=== PATIENT | female | born 1945 | race Caucasian/White ===

== ENCOUNTER → 2016-11-13 | Outpatient (CLI) | payer MEDICARE, BC ==
--- NOTE | 2016-11-14 07:45 | MM ---
Reason for exam: screening (asymptomatic). Last mammogram was performed 1 year ago. History: Patient is postmenopausal and has history of high-risk lesion on a previous biopsy at age 66. Benign right breast needle localzation of both breasts, November 12, 2012. High risk US RT VAD breast biopsy of the right breast, November 02, 2012. Cyst aspiration of the left breast. Took estrogen for 5 years beginning at age 55. Physical Findings: A clinical breast exam by your physician is recommended on an annual basis and results should be correlated with mammographic findings. MG 3D Screening Mammo W/Cad Bilateral CC and MLO view(s) were taken. Prior study comparison: November 13, 2015, bilateral MG screening mammo w CAD. November 10, 2014, bilateral MG screening mammo w CAD. The breast tissue is almost entirely fat. No significant changes when compared with prior studies. ASSESSMENT: Benign, BI-RAD 2 RECOMMENDATION: Routine screening mammogram of both breasts in 1 year.
== END | disposition home or self-care (01) ==
LOC: RADMAMWWP 10:04
PROVIDERS: ATTEND Obstetrics & Gynecology
DX: Z12.31 Encounter for screening mammogram for malignant neoplasm of breast (principal)
CPT/HCPCS: 77063; G0202

== ENCOUNTER 2016-12-06 15:11 | Observation (INO) | payer MEDICARE, BC ==
[2016-12-06] MEDS ORDERED: ASPIRIN 81 MG CHEW PO STA (15:16)
[2016-12-06 15:35] LABS: Glucose,Whole Blood 137 mg/dL (75-99)
[2016-12-06 15:51] LABS: Basophils % (A) 0 %; CH 30.1; CHCM 34.4; Eosinophils # (A) 0.2 k/uL (0-0.7); Eosinophils % (A) 2 %; HCT 40.8 % (34.0-46.0); Luc # (Auto) 0.27; Luc % (Auto) 3; Lymphocytes # (A) 2.7 k/uL (1.0-4.8); Lymphocytes % (A) 31 %; MCH 30.2 pg (25.0-35.0); MCHC 34.3 g/dL (31.0-37.0); MCV 87.9 fL (80.0-100.0); Mean Platelet Volume 8.6; Monocytes # (A) 0.6 k/uL (0-1.0); Monocytes % (A) 7 %; Neutrophils % (A) 57 %; RBC 4.64 m/uL (3.80-5.40); RDW 13.4 % (11.5-15.5); WBC 8.8 k/uL (3.8-10.6); WBC (Perox) 8.91
[2016-12-06 16:01] LABS: ALT 25 U/L (9-52); AST 25 U/L (14-36); Alkaline Phosphatase 67 U/L (38-126); Anion Gap 13 mmol/L; Blood Urea Nitrogen 16 mg/dL (7-17); Calcium 9.6 mg/dL (8.4-10.2); Carbon Dioxide 24 mmol/L (22-30); Chloride 105 mmol/L (98-107); Glucose 127 mg/dL (74-99); Magnesium 1.8 mg/dL (1.6-2.3); Non-African American GFR(MDRD) >60 (>60 ml/min/1.73 sqM); Potassium 4.1 mmol/L (3.5-5.1); Sodium 142 mmol/L (137-145); Total Bilirubin 0.5 mg/dL (0.2-1.3); Total Protein 6.6 g/dL (6.3-8.2)
[2016-12-06 16:13] LABS: Partial Thromboplastin Time 22.9 sec (22.0-30.0)
--- NOTE | 2016-12-06 16:32 | XR ---
EXAMINATION TYPE: XR chest 2V DATE OF EXAM: 12/06/2016 3:56 PM HISTORY: Chest Pain. REFERENCE: NONE. FINDINGS: The lungs are clear. Pleural spaces are clear. Heart size is upper limits of normal. IMPRESSION: BORDERLINE CARDIOMEGALY.
[2016-12-06] MEDS ORDERED: NALOXONE 0.4 MG/ML 1 ML VIAL IV PRN (16:54)
[2016-12-06] MEDS ORDERED: MORPHINE SULFATE 4 MG/ML SYRINGE IV PRN (16:54)
[2016-12-06] MEDS ORDERED: ONDANSETRON 4 MG/2 ML VIAL IVP PRN (16:54)
--- NOTE | 2016-12-06 16:54 | ED ---
Chest Pain HPI - General Chief Complaint: Chest Pain Stated Complaint: CHEST PAIN Time Seen by Provider: 12/06/16 15:16 Source: patient Mode of arrival: wheelchair Limitations: no limitations - History of Present Illness Initial Comments: Patient complains of chest pain. Pain is in the middle of the chest. It is pressure-like. Patient complains of diaphoresis and nausea. She has not had a syncopal or presyncope episodes today. She has no belly pain. She has no focal weakness. She has no change in vision or hearing. She has no headache. She has no neck pain or stiffness. She took no medication for the pain prior to arrival. Nothing makes it better or worse. She has no swelling in the arms or legs. She was helping to take care of her mother when her symptoms began. However she was not doing anything exertional. - Related Data Home Medications Medication Instructions Recorded Confirmed Atenolol 100 mg PO DAILY 12/06/16 12/06/16 Citalopram Hydrobromide [CeleXA] 20 mg PO DAILY 12/06/16 12/06/16 clonazePAM [KlonoPIN] 1 mg PO BID 12/06/16 12/06/16 Allergies Allergy/AdvReac Type Severity Reaction Status Date / Time No Known Allergies Allergy Verified 12/06/16 15:36 Review of Systems ROS Statement: Those systems with pertinent positive or pertinent negative responses have been documented in the HPI. ROS Other: All systems not noted in ROS Statement are negative. EKG Findings - EKG Comments: EKG Findings:: Twelve-lead EKG is obtained, interpreted by me showing ventricular rate 55 bpm, normal IL interval and QRS, axis, no ST elevation or depression, interpreted by me as sinus bradycardia. Past Medical History Past Medical History: Hypertension History of Any Multi-Drug Resistant Organisms: None Reported Past Surgical History: Hysterectomy Past Psychological History: Anxiety, Depression Smoking Status: Never smoker Past Alcohol Use History: None Reported Past Drug Use History: None Reported General Exam Limitations: no limitations General appearance: alert, in no apparent distress Head exam: Present: atraumatic, normocephalic, normal inspection Eye exam: Present: normal appearance, PERRL, EOMI. Absent: scleral icterus, conjunctival injection, periorbital swelling ENT exam: Present: normal exam, mucous membranes moist Neck exam: Present: normal inspection. Absent: tenderness, meningismus, lymphadenopathy Respiratory exam: Present: normal lung sounds bilaterally. Absent: respiratory distress, wheezes, rales, rhonchi, stridor Cardiovascular Exam: Present: regular rate, normal rhythm, normal heart sounds. Absent: systolic murmur, diastolic murmur, rubs, gallop, clicks GI/Abdominal exam: Present: soft, normal bowel sounds. Absent: distended, tenderness, guarding, rebound, rigid Extremities exam: Present: normal inspection, full ROM, normal capillary refill. Absent: tenderness, pedal edema, joint swelling, calf tenderness Back exam: Present: normal inspection Neurological exam: Present: alert, oriented X3, CN II-XII intact Psychiatric exam: Present: normal affect, normal mood Skin exam: Present: warm, dry, intact, normal color. Absent: rash Course Vital Signs 12/06/16 12/06/16 15:12 15:42 Temperature 97.4 F L Pulse Rate 55 L 51 L Respiratory 24 24 Rate Blood Pressure 139/90 174/78 O2 Sat by Pulse 98 99 Oximetry Chest Pain MDM - [facility] Patient complains of chest pain. On reevaluation she is diaphoretic. I'm concerned this is acute coronary syndrome. Laboratory studies are initially normal. I do feel that she requires admission to the hospital. Disposition Clinical Impression: Chest pain Disposition: ADMITTED IP TO THIS HOSP Condition: Fair Time of Disposition: 16:54
[2016-12-06 20:54] VITALS: BMI 34.1
[2016-12-06] MEDS: FAMOTIDINE 20 MG TAB PO SCH (21:22)
[2016-12-06] MEDS ORDERED: CITALOPRAM HYDROBROMIDE 20 MG TAB PO SCH (21:26)
[2016-12-06] MEDS: CITALOPRAM HYDROBROMIDE 20 MG TAB PO SCH (22:26)
[2016-12-06] MEDS: clonazePAM 1 MG TAB PO SCH (22:26)
[2016-12-06] MEDS: MELATONIN 3 MG TABLET PO SCH (22:26)
[2016-12-06] MEDS: ACETAMINOPHEN TAB 500 MG TAB PO SCH (22:27)
[2016-12-06 23:45] VITALS: RESP 18
[2016-12-07] MEDS: FAMOTIDINE 20 MG TAB PO SCH ×2 (08:14→20:25)
[2016-12-07] MEDS: clonazePAM 1 MG TAB PO SCH ×2 (08:14→20:25)
[2016-12-07] MEDS ORDERED: CITALOPRAM HYDROBROMIDE 20 MG TAB PO SCH (09:00)
[2016-12-07] MEDS ORDERED: ATENOLOL 50 MG TAB PO SCH (09:00)
--- NOTE | 2016-12-07 09:15 | CONS ---
DATE OF CONSULTATION: Mrs. Brian is a 70-year-old female with a history of hypertension, who presented with symptoms of progressive fatigue and some chest discomfort. She has been feeling quite fatigued and tired over the last 3 or 4 months. She has been taking care of her mom and yesterday she felt quite tired, sweaty and dizzy. She came into the emergency room and subsequently admitted. Patient has occasional episode of chest discomfort, but not any worse. Yesterday did not try to do any physical activity. She is average in exercise tolerance, She has no exertional chest pain or change in her breathing. She denies any palpitation. No syncope. No PND, orthopnea, no peripheral edema. She has no prior documented history of coronary artery disease. Her coronary risk factors are remarkable for hypertension. She is nondiabetic, nonsmoker. Her lipid profile is not available. Her medications at home include Klonopin, Celexa and atenolol 100 mg daily and Tylenol. ALLERGIES: None. SOCIAL HISTORY: No history of alcohol or tobacco use. REVIEW OF SYSTEMS: RESPIRATORY SYSTEM: She has no recent wheezing. No cough. No history of documented obstructive lung disease. GI SYSTEM: No recent GI bleeding. No peptic ulcer cause disease. SYSTEM: No dysuria or hematuria. NERVOUS SYSTEM: No stroke or seizure. PHYSICAL EXAMINATION: A 70-year-old female, alert, oriented, in no apparent distress. Blood pressure 119/59 with a heart in the 50s. HEAD: Normocephalic. EYES: Sclerae anicteric. NECK: Good upstroke. No bruit. No jugular venous distention. LUNGS: Clear to auscultation. HEART: Regular rate and rhythm. S1, S2, no S3, no rub or gallop. ABDOMEN: Soft, nontender, positive bowel sounds. No organomegaly. EXTREMITIES: No edema. Intact distal pulses. LAB DATA: EKG sinus mechanism, rate 55, normal axis and intervals, normal echocardiogram. Troponin less than 0.012 for 3 samples. Blood sugar of 127, BUN and creatinine 16 and 0.9. Hemoglobin of 14. Chest x-ray shows no acute infiltrate. IMPRESSION: 1. Symptoms of chest discomfort, atypical for ischemic heart disease. 2. Symptoms of fatigue with no clear cardiac etiology. 3. Hypertension. 4. History of anxiety. RECOMMENDATIONS: I would recommend to obtain an evaluation of thyroid function tests. I will also obtain an echocardiogram with Doppler and a stress echocardiogram. If there is no evidence of abnormality, then no further cardiac work-up will be needed. I will check her hemoglobin A1c because of the mild elevation of her blood sugar. Depending on the results of her testing further recommendation will be made. Thank you for this consult. We will follow with you.
[2016-12-07] MEDS: ACETAMINOPHEN TAB 500 MG TAB PO SCH ×2 (10:03→20:26)
--- NOTE | 2016-12-07 19:07 | HP ---
DATE OF ADMISSION: REASON FOR ADMISSION: Chest pressure. HISTORY OF PRESENT ILLNESS: This is a 70-year-old female with no past history of cardiac disease, comes into the hospital with an episode where patient was noted diaphoresis and chest pressure that lasted less than 30 minutes. Patient states that she has been having intermittent chest pain for the last few months. Patient states that she is under extreme stress trying to take care of her 90-year-old mother by herself. Patient states that she is physically active, is able to walk close to a mile without any reproduction of dyspnea, chest pain or the episode described above. Patient states that she has been in good health. Denies having any headaches, blurry vision, neck pain, nausea, vomiting, chest pain, difficulty in breathing, abdominal pain, urinary urgency or frequency, change in bowel habits at the time of my evaluation. EKG did not reveal any ST-T wave changes. Initial cardiac enzyme was less than 2012. Home medications include: 1. Klonopin 1 mg p.o. b.i.d. 2. Celexa 20 mg p.o. daily. 3. Atenolol 100 mg p.o. daily. 4. Tylenol PM 1 tab p.o. bedtime. Past medical history includes: Anxiety, depression and essential hypertension. ALLERGIES: No known drug allergies. SOCIAL HISTORY: Denies any history of illicit drug use tobacco or alcohol use. REVIEW OF SYSTEMS: 14 point review of systems was done and pertinent points were mentioned above. SURGERIES: None reported. FAMILY HISTORY: No premature heart disease reported. PHYSICAL EXAMINATION: VITAL SIGNS: Temperature 97.5, heart rate is 50, respiratory rate 18, blood pressure 124/59. Saturating 96% on room air. GENERALLY: Patient appears to be alert, oriented x3. HEENT: The pupils are equal and reactive to light and accommodation. HEART: S1, S2 present. No murmur appreciated. LUNGS: Good air entry. No wheezing or rhonchi noted. ABDOMINAL EXAM: Soft, nontender, no organomegaly appreciated. GENITOURINARY: No Agarwal in place. EXTREMITIES: Pulses can be palpated distally. Denies any tenderness on gross palpation. SKIN: On a gross skin exam does not appear to have any purpura or any skin rashes that were noted. NEUROLOGICALLY: Grossly cranial nerves 2-12 intact. No motor or sensory deficits noted. LABORATORY DATA: Sodium 142, potassium 4.1, chloride 105, bicarb 24, BUN 16, creatinine of 0.90, hemoglobin 14, hematocrit 40, platelets of 210 and white count 8.8. A chest x-ray was within normal limits. ASSESSMENT: 1. Atypical chest pain; rule out acute coronary syndrome. 2. Anxiety. 3. Depression. 4. History of essential hypertension. 5. Clinical sleep apnea. 6. Chronic fatigue. PLAN: Cardiac enzymes x3 will be done. Cardiology consultation will be obtained. In regards to stress test, which will be ordered tomorrow. HbA1c is ordered. I do suspect that the patient states that she sleeps for close to 15 hours a day; however, is not restful thereafter. Underlying sleep apnea could also be an etiology. Vitamin D level will also be checked. Disposition will be dependent on the stress test.
[2016-12-07] MEDS: CITALOPRAM HYDROBROMIDE 20 MG TAB PO SCH (20:25)
[2016-12-07] MEDS: MELATONIN 3 MG TABLET PO SCH (20:25)
[2016-12-07 20:27] LABS: Hemoglobin A1C 6.1 % (4.2-6.1)
[2016-12-07] MEDS ORDERED: diphenhydrAMINE 25 MG CAP PO SCH (21:00)
--- NOTE | 2016-12-08 08:39 | P.PN ---
Subjective Principal diagnosis: ACS This is a 70-year-old white female essentially admitted for atypical type chest pressure with diaphoresis. The patient states she was trying to help her somewhat ailing mother and had difficulty, after skipping a lunchtime meal. She is now here because of ACS-type symptoms. She still feels significant fatigue. There was elevated blood sugar but A1c is normal. Appreciate cardiology input. Objective - Vital Signs Vital signs: Vital Signs Temp 97.6 F 12/08/16 07:47 Pulse 48 L 12/08/16 07:47 Resp 18 12/08/16 07:47 BP 133/65 12/08/16 07:47 Pulse Ox 94 L 12/08/16 07:47 Intake & Output 12/07/16 12/08/16 12/08/16 18:59 06:59 18:59 Intake Total 960 Balance 960 Intake: Oral 960 Other: Voiding Method Toilet Toilet # Voids 1 - Constitutional General appearance: Present: obese - EENT Eyes: Absent: abnormal pupil - Respiratory Respiratory: bilateral: CTA - Cardiovascular Rhythm: regular Heart sounds: normal: S1, S2 - Gastrointestinal General gastrointestinal: Present: soft. Absent: tenderness - Neurologic Neurologic: Present: CNII-XII intact - Musculoskeletal Musculoskeletal: Present: gait normal - Psychiatric Psychiatric: Present: A&O x's 3, appropriate affect - Labs CBC & Chem 7: 12/06/16 15:35 12/06/16 15:35 Assessment and Plan (1) Chest pain Status: Acute Plan: stress echocardiogram is pending today. Disposition will be dependent on stress testing. The patient is nondiabetic. We did discuss delegation of care of her ailing mother. Time with Patient: Less than 30
[2016-12-08] MEDS: FAMOTIDINE 20 MG TAB PO SCH (08:46)
[2016-12-08] MEDS: clonazePAM 1 MG TAB PO SCH (08:46)
[2016-12-08] MEDS ORDERED: DOBUTamine DRIP for NUC MED 500 MG in DEXTROSE/WATER 1 250ML.BAG IV ONE (09:51)
[2016-12-08] MEDS ORDERED: ATROPINE SULFATE 0.1 MG/ML 10ML SYRINGE ONE (10:33)
--- NOTE | 2016-12-08 11:18 | ECHOF ---
Referral Reason:cp MEASUREMENTS -------- HEIGHT: 165.1 cm WEIGHT: 93.0 kg BP: IVSd: 1.5 cm (0.6 - 1.1) LVIDd: 4.3 cm (3.9 - 5.3) LVPWd: 1.4 cm (0.6 - 1.1) IVSs: 2.1 cm LVIDs: 2.6 cm LVPWs: 1.9 cm Ao Diam: 3.3 cm (2.0 - 3.7) AV Cusp: 1.9 cm (1.5 - 2.6) LA Diam: 3.4 cm (2.7 - 3.8) MV EXCURSION: 12.495 mm (> 18.000) MV EF SLOPE: 40 mm/s (70 - 150) EPSS: 0.5 cm MV E Mane: 0.86 m/s MV DecT: 294 ms MV A Mane: 0.58 m/s MV E/A Ratio: 1.49 RAP: 5.00 mmHg RVSP: 12.14 mmHg FINDINGS -------- Sinus rhythm. This was a technically difficult study with suboptimal views. There is mild concentric left ventricular hypertrophy. Overall left ventricular systolic function is normal with, an EF between 55 - 60 %. The right ventricle is normal in size and function. The left atrium is normal in size. The right atrium is normal in size. 1.5mg of Definity was utilized for enhancement of images Aortic valve is trileaflet and is mildly thickened. The mitral valve leaflets are mildly thickened. There is trace mitral regurgitation. Trace tricuspid regurgitation present. The right ventricular systolic pressure, as measured by Doppler, is 12.14mmHg. Pulmonic valve appears structurally normal. The aortic root size is normal. The pericardium is normal. CONCLUSIONS -------- 1. Sinus rhythm. 2. The mitral valve leaflets are mildly thickened. 3. There is trace mitral regurgitation. 4. Trace tricuspid regurgitation present. 5. The right ventricular systolic pressure, as measured by Doppler, is 12.14mmHg. 6. Pulmonic valve appears structurally normal. 7. The aortic root size is normal. 8. The pericardium is normal. 9. This was a technically difficult study with suboptimal views. 10. There is mild concentric left ventricular hypertrophy. 11. Overall left ventricular systolic function is normal with, an EF between 55 - 60 %. 12. The right ventricle is normal in size and function. 13. The left atrium is normal in size. 14. The right atrium is normal in size. 15. 1.5mg of Definity was utilized for enhancement of images 16. Aortic valve is trileaflet and is mildly thickened. MULTICRAFT OPERATOR: Sonya Andino RDCS
--- NOTE | 2016-12-08 14:07 | ECHOS ---
DATE OF SERVICE: 12/08/2016 AGE: 70Y SEX: F HT: 65" WT: 205 lbs. Protocol Alejo: Others: Dobutamine Stress Echo Stage: 3 Dur. of Exercise: 7:40 *Heart Rate Blood Pressure *Rest: 59 Rest: 144/51 * *Max. Achieved: 132 Maximum BP: 190/71 85% PMHR: 128 100% PMHR: 151 *METS: - INDICATIONS: Chest pain. MEDICATIONS: Atenolol, Klonopin, Celexa, Tylenol. Patient was given dobutamine infusion according to the standard protocol. Patient also received atropine. Peak heart rate of 132 was achieved. Maximum blood pressure of 190/71mmHg was noted. Resting EKG shows normal sinus rhythm with normal MS interval and QRS duration and normal ST-T waves. During dobutamine infusion, J-point depression with upsloping ST segments are noted. The baseline echocardiographic images reveal normal left ventricular chamber size with normal left ventricular systolic function. At the peak dose of dobutamine infusion, normal increase in the wall thickness and contractility is noted. FINAL IMPRESSION: This dobutamine stress echocardiographic study is negative for stress-induced ischemia. EKG portion of the stress test shows equivocal upsloping ST segment changes not diagnostic of ischemia.
--- NOTE | 2016-12-08 15:09 | PN ---
Mr. Brian is a 70-year-old female, history of hypertension, who presented with symptoms of progressive fatigue, lack of energy and chest discomfort. She is doing well this morning. She is feeling tired. Otherwise, she denies any chest pain. Her breathing is stable. She denies any dizziness or palpitation. On the monitor, she continued to be in sinus mechanism. She continues to be on atenolol 100 mg daily, clonazepam and Benadryl. PHYSICAL EXAMINATION: Blood pressure 133/60 with a heart rate in the 50s. HEAD: Normocephalic. EYES: Sclerae nonicteric. NECK: Good upstroke. No bruit. LUNGS: Clear to auscultation. HEART: Regular rate and rhythm. S1, S2, no S3, no rub. ABDOMEN: Soft, nontender. EXTREMITIES: No edema. Lab data showed a TSH of 3.260, her hemoglobin A1c is 6.1. IMPRESSION: 1. Chest discomfort, has atypical feature for ischemic heart disease. 2. Hypertension. 3. Fatigue. RECOMMENDATION: Will proceed with a stress echocardiogram today. If there is no evidence of inducible ischemia, then no further cardiac work-up will be needed.
[2016-12-08 16:02] VITALS: BP 131/63; PULSE 54; TEMP 97.4
--- NOTE | 2017-02-11 10:47 | P.DS ---
Providers Date of admission: 12/06/16 16:54 Attending physician: Megan Medel Consults: 12/06/16 16:55 Consult Physician Routine Consulting Provider: Ernie Cui Consult Reason/Comments: chest pain Do you want consulting provider notified?: Yes Primary care physician: True Vasquez - Discharge Diagnosis(es) (1) Chest pain Status: Acute Hospital Course: This is discharge summary 71-year-old white female essentially admitted for chest pain. Myocardial infarction was ruled out. Conductor/Brakeman consulted and she was released in stable condition after evaluation. The patient is to follow -up with me in approximately 3-5 days.She was tolerating diet and ambulating without difficulty and to follow me as stated above. Patient Condition at Discharge: Good Plan - Discharge Summary New Discharge Prescriptions: No Action clonazePAM [KlonoPIN] 1 mg PO BID Citalopram Hydrobromide [CeleXA] 20 mg PO DAILY Atenolol 100 mg PO DAILY Acetaminophen/Diphenhydramine [Tylenol PM 500-25mg] 1 tab PO HS Discharge Medication List Acetaminophen/Diphenhydramine [Tylenol PM 500-25mg] 1 tab PO HS 12/06/16 [ History] Atenolol 100 mg PO DAILY 12/06/16 [History] Citalopram Hydrobromide [CeleXA] 20 mg PO DAILY 12/06/16 [History] clonazePAM [KlonoPIN] 1 mg PO BID 12/06/16 [History] Follow up Appointment(s)/Referral(s): True Vasquez MD [Primary Care Provider] - 1-2 days Patient Instructions/Handouts: Chest Pain (GEN) Activity/Diet/Wound Care/Special Instructions: Please call Dr. Vasquez's office tomorrow to make a follow up anointment within a week. If you continue to experience any chest pain or discomfort please return to the Emergency department. Discharge Disposition: HOME SELF-CARE
== END 2016-12-08 18:00 | disposition home or self-care (01) ==
LOC: EC 15:11 → 3OBS 16:54
PROVIDERS: ADMIT Internal Medicine; ATTEND Internal Medicine
DX: R07.89 Other chest pain (principal); F41.9 Anxiety disorder, unspecified; F32.9 Major depressive disorder, single episode, unspecified; I10 Essential (primary) hypertension; G47.30 Sleep apnea, unspecified; Z79.899 Other long term (current) drug therapy; R53.82 Chronic fatigue, unspecified; R61 Generalized hyperhidrosis; R11.0 Nausea; R42 Dizziness and giddiness
CPT/HCPCS: 99285 ×2; 36415; 93005; 93017; 83880; 80053; 84443; 83036; 83690; 83735; 84484 ×2; 85025; 85610; 85730; 82306; 87502; 71020; G0378 ×3; C8928; C8929; J1250; J0461; Q9957; 93306; 93350

== ENCOUNTER 2017-03-26 11:44 | Day surgery (SDC) | payer MEDICARE, BC ==
[2017-03-19 18:14] VITALS: BMI 36.0
[~2017-03-26 11:44] MED LIST: HEPARIN SODIUM,PORCINE 5,000 UNIT/ML 1 ML VIAL SQ ONE; LACTATED RINGERS 1,000 ML IV SCH; LIDOCAINE 1% 20 ML VIAL (10MG/ML) FOR IV START INTRADERMA PRN; ONDANSETRON 4 MG/2 ML VIAL IVP ONE; ceFAZolin 2 GM in SODIUM CHLORIDE 0.9% 100 ML IVPB ONE
--- NOTE | 2017-03-26 12:21 | P.GSHP ---
History of Present Illness H&P Date: 03/26/17 Chief Complaint: Incarcerated umbilical hernia Patient seen in October and again in February. She has complaints of a bulge at the umbilicus that is painful at times. Denies nausea or vomiting. No prior surgeries in that area. Initially it seemed that the hernia was not painful over the last 6 months or so it has been increasing in size and pain. No change in bowel habits. Past Medical History Past Medical History: Hyperlipidemia, Hypertension, Osteoarthritis (OA) Additional Past Medical History / Comment(s): OA BACK PAIN. UMBILICAL HERNIA. EPISODE OF CP IN 12/2016, CARDIAC W/U NL, FELT TO BE R/T STRESS, EXHAUSTION. History of Any Multi-Drug Resistant Organisms: None Reported Past Surgical History: Breast Surgery, Hysterectomy Additional Past Surgical History / Comment(s): LT Shoulder Rotator Cuff Repair. EXC LESION RT BREAST, BIOPSY. Past Anesthesia/Blood Transfusion Reactions: Family History of Problems w/ Anesthesia, Motion Sickness, Postoperative Nausea & Vomiting (PONV) Additional Past Anesthesia/Blood Transfusion Reaction / Comment(s): MOTHER HAS SEVERE PONV ALSO. Smoking Status: Never smoker - Past Family History Mother Family Medical History: Cancer, Coronary Artery Disease (CAD), Diabetes Mellitus , Myocardial Infarction ([place]) Additional Family Medical History / Comment(s): SKIN CA Brother(s) Family Medical History: AICD/Pacemaker, Coronary Artery Disease (CAD), Myocardial Infarction ([place]) Father Family Medical History: Coronary Artery Disease (CAD), CVA/TIA, Dementia, Myocardial Infarction ([place]) Medications and Allergies Home Medications Medication Instructions Recorded Confirmed Type Acetaminophen/Diphenhydramine 1 tab PO HS PRN 12/06/16 03/19/17 History [Tylenol PM 500-25mg] Atenolol 100 mg PO DAILY 12/06/16 03/19/17 History Atorvastatin [Lipitor] 20 mg PO HS 03/19/17 03/19/17 History LORazepam [Ativan] 0.5 mg PO BID PRN 03/19/17 03/19/17 History Multivit/Folic Acid/Vit K1 1 each PO DAILY 03/19/17 03/19/17 History [One-A-Day Women's 50 Plus Tab] Naproxen Sodium [Aleve] 440 mg PO BID PRN 07/13/17 07/13/17 History Allergies Allergy/AdvReac Type Severity Reaction Status Date / Time No Known Allergies Allergy Verified 03/19/17 17:51 Surgical - Exam Vital Signs Temp Pulse Resp BP Pulse Ox 96.9 F L 51 L 16 175/76 97 03/26/17 12:08 03/26/17 12:08 03/26/17 12:08 03/26/17 12:08 03/26/17 12:08 Physical exam: General: Well-developed, well-nourished HEENT: Normocephalic, sclerae nonicteric Abdomen: Nontender, nondistended, moderate sized incarcerated umbilical hernia, no skin ischemia noted Extremities: No edema Neuro: Alert and oriented Assessment and Plan (1) Umbilical hernia, incarcerated Narrative/Plan: Clinical scenario discussed with the patient. Because of the ongoing discomforts she is been scheduled for operative repair. Plan laparoscopic repair using the da Harpreet robot as assistance. Mesh will be utilized. Risks of bleeding, infection, seroma, recurrence, bowel injury, conversion were all discussed. She understands and wishes to proceed. Status: Acute
[2017-03-26] MEDS ORDERED: DEXAMETHASONE SOD PHOSPHATE 10 MG/ML 1 ML VIAL IV ONE (12:26)
[2017-03-26] MEDS ORDERED: PROPOFOL 10 MG/ML 20 ML VIAL IV ONE (13:06)
[2017-03-26] MEDS ORDERED: ROCURONIUM BROMIDE 10 MG/ML 10 ML VIAL IV ONE (13:06)
[2017-03-26] MEDS ORDERED: GLYCOPYRROLATE 0.2 MG/ML 2 ML VIAL ONE (13:06)
[2017-03-26] MEDS ORDERED: LIDOCAINE 1% INJ 10MG/ML (20 ML MDV) ONE (13:06)
[2017-03-26] MEDS ORDERED: NEOSTIGMINE 1 MG/ML 10 ML VIAL ONE (13:06)
[2017-03-26] MEDS ORDERED: SUCCINYLCHOLINE CHLORIDE 100 MG/5 ML SYR IV ONE (13:06)
[2017-03-26] MEDS ORDERED: MIDAZOLAM 2 MG/2 ML VIAL ONE (13:06)
[2017-03-26] MEDS ORDERED: fentaNYL (PF) 50 MCG/ML 2 ML AMP ONE (13:06)
[2017-03-26] MEDS ORDERED: BUPIVACAIN-EPI 0.25%-1:200,000 30 ML VIAL SQ ONE (13:32)
[2017-03-26] MEDS ORDERED: NALOXONE 0.4 MG/ML 1 ML VIAL IV PRN (15:09)
[2017-03-26] MEDS ORDERED: HYDROcodone/APAP 5-325MG 1 EACH TAB PO PRN (15:09)
--- NOTE | 2017-03-26 15:14 | P.PCN ---
Date of Procedure: 03/26/17 Preoperative Diagnosis: Postoperative Diagnosis: Procedure(s) Performed: PREOPERATIVE DIAGNOSIS: Incarcerated umbilical hernia POSTOPERATIVE DIAGNOSIS: Same PROCEDURE: Laparoscopic repair incarcerated umbilical hernia with da Harpreet robotic assistance with mesh SURGEON: Jax EBL: Sima Pandey ANESTHESIA: Gen. COMPLICATIONS: None OPERATIVE PROCEDURE: Patient was placed on the operating room table in the supine position. Patient was then placed under general anesthesia. The abdomen was prepped and draped in usual sterile fashion. A 5 mm optical trocar was used to enter the abdominal cavity in the left subcostal location and laterally. Insufflation took place fully to 15 mm of mercury. At that point a 12 mm trocar was placed laterally in the mid abdomen. An 8 mm trocar was placed in the left lower quadrant. The initial 5 was then switched to an 8 mm trocar as well. All of these were placed under direct visualization. The trochars were placed so that the neutral center of the trocar was within the abdominal wall. The da Harpreet robot was then docked after placing the patient in a slight right decubitus position. I then left the bedside and moved to the da Harpreet console. The patient's hernia was inspected. In this particular case the patient had an incarcerated umbilical hernia defect. This defect was approximately 3 x 4 cm in size. The omentum was reduced back into the peritoneal cavity. The majority of the hernia sac was dissected away from the hernia itself along with the herniated fat. This was excised and sent to pathology for close examination. This defect was closed horizontally using a o v lock suture. An 11 cm circular mesh was then utilized. This was a ventral light ST mesh. This was sutured circumferentially using 2-0 V lock sutures. This was performed in a running fashion using 4 separate sutures. The middle portion of the mesh was also sutured to the abdominal wall. This provided excellent coverage of our fascial closure. We then switched to a traditional laparoscopic approach. The 5 needles and also the hernia sac were removed at that point. The defect at the 12 mm trocar site was closed using an 0 Vicryl suture and the Shiva Daniels technique. The skin at all 3 sites were closed using interrupted 4-0 Monocryl sutures. Steri-Strips and sterile dressings were applied. DISPOSITION: Stable to recovery room Implants: Indications for Procedure: Operative Findings: Description of Procedure:
[2017-03-26] MEDS ORDERED: LACTATED RINGERS 1,000 ML IV ONE (15:33)
[2017-03-26 15:36] VITALS: TEMP 97
[2017-03-26] MEDS: HYDROmorphone 1 MG/ML 1 ML SYRINGE IVP PRN ×4 (15:41→16:44)
[2017-03-26 16:55] VITALS: RESP 18
[2017-03-26 17:53] VITALS: BP 122/73; PULSE 72
== END 2017-03-26 17:53 | disposition home or self-care (01) ==
LOC: OR 11:44
PROVIDERS: ATTEND Surgery
DX: K42.0 Umbilical hernia with obstruction, without gangrene (principal); I10 Essential (primary) hypertension; E78.5 Hyperlipidemia, unspecified; G47.33 Obstructive sleep apnea (adult) (pediatric); M19.90 Unspecified osteoarthritis, unspecified site; Z79.899 Other long term (current) drug therapy; Z90.710 Acquired absence of both cervix and uterus
CPT/HCPCS: 49653; C1781; J2250; J1644; J1100; J2710; J0690; J2405; J2001; J3010; J1170; J0330; J2704; 88302

== ENCOUNTER → 2017-11-23 | Outpatient (CLI) | payer MEDICARE, BC ==
--- NOTE | 2017-11-24 11:33 | BD ---
EXAMINATION TYPE: MG DEXA axial skeleton. DATE OF EXAM: 11/23/2017 COMPARISON: 2000 CLINICAL HISTORY: Osteoporosis screening. Postmenopausal female. Height: 5'4 Weight: 211 FRAX RISK QUESTIONS: Alcohol (3 or more units per day): no Family History (Parent hip fracture): no Glucocorticoids (More than 3mos): no (Ex: prednisone, prednisolone, methylprednisolone, dexamethasone, and hydrocortisone). History of Fracture in Adulthood: no Secondary Osteoporosis: 1. Type 1 Diabetes: no 2. Hyperthyroidism: no 3. Menopause before 45: no 4. Malnutrition: no 5. Chronic liver disease: no Rheumatoid Arthritis: no Current Tobacco Use: no RISK FACTORS HISTORY OF: Family History of Osteoporosis: y Diet low in dairy products/other sources of calcium: y Postmenopausal woman: y MEDICATIONS: Additional Medications: blood pressure, cholesterol, anti anxiety Additional History: EXAM MEASUREMENTS: Bone mineral densitometry was performed using the [employer] System. Bone mineral density as measured about the Lumbar spine is: ----- L1-L4(G/cm2): 1.445 T Score Values are as follows: ----- L2: 1.5 ----- L3: 3.6 ----- L4: 2.2 ----- L1-L4:2.2 Bone mineral density has: Increased 0.1% since study of: 12/23/2000 Bone mineral density about the R hip (g/cm2): 0.911 Bone mineral density about the L hip (g/cm2): 0.937 T Score values are as follows: -----R Neck: -0.9 -----L Neck: -0.7 -----R Total: 1.0 -----L Total: 0.6 Bone mineral density has: Decreased -2.3% since study of: 12/23/2000 IMPRESSION: Normal (Values between +1 and -1 indicate normal bone mass). Consider repeating this study in 5 year s or sooner if there is some new clinical indication. NOTE: T-SCORE=SD OF THE YOUNG ADULT MEAN.
--- NOTE | 2017-11-24 14:30 | MM ---
Reason for exam: screening (asymptomatic). Last mammogram was performed 1 year ago. History: Patient is postmenopausal and has history of high-risk lesion on a previous biopsy at age 66. Benign right breast needle localzation of both breasts, November 12, 2012. High risk US RT VAD breast biopsy of the right breast, November 02, 2012. Cyst aspiration of the left breast. Took estrogen for 5 years beginning at age 55. Physical Findings: A clinical breast exam by your physician is recommended on an annual basis and results should be correlated with mammographic findings. MG 3D Screening Mammo W/Cad Bilateral CC and MLO view(s) were taken. Prior study comparison: November 13, 2016, bilateral MG 3d screening mammo w/cad. November 13, 2015, bilateral MG screening mammo w CAD. There are scattered fibroglandular densities. Finding: There are typically benign diffuse/scattered calcifications in both breasts. No suspicious abnormality. No significant changes in finding since November 13, 2016 and November 13, 2015. ASSESSMENT: Benign, BI-RAD 2 RECOMMENDATION: Routine screening mammogram of both breasts in 1 year.
== END | disposition home or self-care (01) ==
LOC: RADMAMWWP 14:54
PROVIDERS: ATTEND Obstetrics & Gynecology
DX: Z12.31 Encounter for screening mammogram for malignant neoplasm of breast (principal); Z13.820 Encounter for screening for osteoporosis
CPT/HCPCS: 77063; 77067; 77080

== ENCOUNTER 2017-11-28 16:54 | Inpatient (IN) | payer MEDICARE, BC ==
[2017-11-28] MEDS ORDERED: MORPHINE SULFATE/PF 10MG/10ML VL IV STA (18:19)
[2017-11-28] MEDS ORDERED: ONDANSETRON 4 MG/2 ML VIAL IVP STA (18:19)
[2017-11-28] MEDS ORDERED: SODIUM CHLORIDE 0.9% 1,000 ML IV STA (18:19)
[2017-11-28] MEDS ORDERED: RX INFO: IV CONTRAST WAS GIVEN 1 EACH MISC MISCELLANE PRN (18:19)
[2017-11-28] MEDS ORDERED: ACETAMINOPHEN TAB 500 MG TAB PO STA (18:21)
--- NOTE | 2017-11-28 18:26 | ED ---
Pediatric GI HPI - General Source: patient Mode of arrival: ambulatory Limitations: no limitations <Afshan Boyd - Last Filed: 11/28/17 20:17> <Steven Mota - Last Filed: 11/28/17 21:32> - General Chief Complaint: Abdominal Pain Stated Complaint: abdominal pain Time Seen by Provider: 11/28/17 18:13 - History of Present Illness Initial Comments: 71-year-old female patient presents to the emergency department today with complaints of generalized abdominal pain worse over the lower abdomen that started 2 days ago. Patient states the pain is sharp and severe. States it is constantly present. She denies any radiation of the pain to her back. Patient states when she takes a deep breath the pain worsens. She states she has been nauseated but denies any vomiting. Denies any constipation or diarrhea. Denies any hematochezia, melena, or hematemesis. Patient states she has been urinating more frequently. She denies any dysuria or hematuria. Patient does have a history of previous hernia repair with mesh placement. Patient did have elevated temperature in triage, but was unaware she had a fever. Patient denies any recent rash, shortness breath, chest pain, back pain, numbness, tingling, dizziness, weakness, headache, visual changes, or any other complaints. (Afshan Boyd) - Related Data Home Medications Medication Instructions Recorded Confirmed Acetaminophen/Diphenhydramine 1 tab PO HS PRN 12/06/16 11/28/17 [Tylenol PM 500-25mg] Atenolol 100 mg PO DAILY 12/06/16 11/28/17 LORazepam [Ativan] 0.5 mg PO BID PRN 03/19/17 11/28/17 Multivit/Folic Acid/Vit K1 1 each PO DAILY 03/19/17 11/28/17 [One-A-Day Women's 50 Plus Tab] Naproxen Sodium [Aleve] 440 mg PO BID PRN 03/19/17 11/28/17 Allergies Allergy/AdvReac Type Severity Reaction Status Date / Time No Known Allergies Allergy Verified 11/28/17 17:16 Review of Systems ROS Other: All systems not noted in ROS Statement are negative. <Afshan Boyd - Last Filed: 11/28/17 20:17> ROS Other: All systems not noted in ROS Statement are negative. <NakulSteven - Last Filed: 11/28/17 21:32> ROS Statement: Those systems with pertinent positive or pertinent negative responses have been documented in the HPI. Past Medical History Past Medical History: Hyperlipidemia, Hypertension, Osteoarthritis (OA) Additional Past Medical History / Comment(s): OA BACK PAIN. UMBILICAL HERNIA. EPISODE OF CP IN 12/2016, CARDIAC W/U NL, FELT TO BE R/T STRESS, EXHAUSTION. History of Any Multi-Drug Resistant Organisms: None Reported Past Surgical History: Breast Surgery, Hysterectomy Additional Past Surgical History / Comment(s): LT Shoulder Rotator Cuff Repair. EXC LESION RT BREAST, BIOPSY. Past Anesthesia/Blood Transfusion Reactions: Family History of Problems w/ Anesthesia, Motion Sickness, Postoperative Nausea & Vomiting (PONV) Additional Past Anesthesia/Blood Transfusion Reaction / Comment(s): MOTHER HAS SEVERE PONV ALSO. Past Psychological History: Anxiety, Depression Smoking Status: Never smoker Past Alcohol Use History: None Reported Past Drug Use History: None Reported - Past Family History Mother Family Medical History: Cancer, Coronary Artery Disease (CAD), Diabetes Mellitus , Myocardial Infarction ([place]) Additional Family Medical History / Comment(s): SKIN CA Brother(s) Family Medical History: AICD/Pacemaker, Coronary Artery Disease (CAD), Myocardial Infarction ([place]) Father Family Medical History: Coronary Artery Disease (CAD), CVA/TIA, Dementia, Myocardial Infarction ([place]) <Afshan Boyd - Last Filed: 11/28/17 20:17> General Exam Limitations: no limitations General appearance: alert, in no apparent distress, other (This is a well- developed, well-nourished adult female patient in mild distress related to pain. Vital signs upon presentation are temperature 101.0F, pulse 60, respirations 20, blood pressure 220/84, pulse ox 96% on room air.) Eye exam: Present: normal appearance, PERRL, EOMI. Absent: scleral icterus, conjunctival injection, periorbital swelling ENT exam: Present: normal exam, mucous membranes moist Respiratory exam: Present: normal lung sounds bilaterally. Absent: respiratory distress, wheezes, rales, rhonchi, stridor Cardiovascular Exam: Present: regular rate, normal rhythm, normal heart sounds. Absent: systolic murmur, diastolic murmur, rubs, gallop, clicks GI/Abdominal exam: Present: soft, tenderness (Tenderness to the right lower quadrant and left lower quadrant.), normal bowel sounds. Absent: distended, guarding, rebound, rigid Neurological exam: Present: alert, oriented X3, CN II-XII intact Psychiatric exam: Present: normal affect, normal mood Skin exam: Present: warm, dry, intact, normal color. Absent: rash <Afshan Boyd - Last Filed: 11/28/17 20:17> Course <Afshan Boyd - Last Filed: 11/28/17 20:17> <Steven Mota - Last Filed: 11/28/17 21:32> Vital Signs 11/28/17 11/28/17 11/28/17 17:13 20:00 20:44 Temperature 101.0 F H 99.1 F 99.4 F Pulse Rate 60 66 Respiratory 20 18 Rate Blood Pressure 220/84 177/71 O2 Sat by Pulse 96 95 Oximetry - Reevaluation(s) Reevaluation #1: 11/28/17 21:30 I did personally do a [id number] examination the patient did discuss Pfizer her and her . Patient does have right upper quadrant and right-sided abdominal pain CAT scan showed evidence of cholecystitis with pericolic fluid ultrasound does show evidence of dilated common bile duct 0.9 cm. Evidence of small gallstones. (Steven Mota) Reevaluation #2: 11/28/17 21:31 I did discuss the case with Dr. Camara. Patient will be admitted to Dr. Vasquez' s service the hospitalist the covering today Dr. Carbone will also be consulted for consideration of ERCP (Steven Mota) Medical Decision Making - Lab Data Result diagrams: 11/28/17 18:40 11/28/17 18:40 - EKG Data -: EKG Interpreted by Il - Radiology Data Radiology results: report reviewed, image reviewed <Afshan Boyd - Last Filed: 11/28/17 20:17> - Lab Data Result diagrams: 11/28/17 18:40 11/28/17 18:40 <Steven Mota - Last Filed: 11/28/17 21:32> - Medical Decision Making 71-year-old female patient presented to the emergency department today for evaluation of generalized abdominal pain worse over the periumbilical region and bilateral lower quadrants. Physical examination revealed tenderness in the right and left lower quadrants. EKG showed normal sinus rhythm. Labs reviewed and did reveal an elevated total bilirubin at 3.1, AST 905, a LT 686, alkaline phosphatase 256. We did obtain CT abdomen and pelvis with contrast which did show concerns for cholecystitis. We also obtain ultrasound of the right upper quadrant this report is not back at this time. Patient is reevaluated and is feeling much better after administration of morphine and IV fluids. Care will be handed over to Dr. Mota who will follow patient until admission. (Afshan Boyd) - Lab Data Lab Results 11/28/17 11/28/17 11/28/17 Range/Units 18:40 18:40 18:40 WBC 7.5 (3.8-10.6) k/uL RBC 4.89 (3.80-5.40) m/uL Hgb 14.0 (11.4-16.0) gm/dL Hct 42.5 (34.0-46.0) % MCV 87.0 (80.0-100.0) fL MCH 28.6 (25.0-35.0) pg MCHC 32.9 (31.0-37.0) g/dL RDW 13.4 (11.5-15.5) % Plt Count 178 (150-450) k/uL Neutrophils % 74 % Lymphocytes % 14 % Monocytes % 8 % Eosinophils % 2 % Basophils % 0 % Neutrophils # 5.6 (1.3-7.7) k/uL Lymphocytes # 1.1 (1.0-4.8) k/uL Monocytes # 0.6 (0-1.0) k/uL Eosinophils # 0.1 (0-0.7) k/uL Basophils # 0.0 (0-0.2) k/uL Sodium 142 (137-145) mmol/L Potassium 4.9 (3.5-5.1) mmol/L Chloride 103 (98-107) mmol/L Carbon Dioxide 27 (22-30) mmol/L Anion Gap 12 mmol/L BUN 12 (7-17) mg/dL Creatinine 0.60 (0.52-1.04) mg/dL Est GFR (CKD-EPI)AfAm >90 (>60 ml/min/1.73 sqM) Est GFR (CKD-EPI)NonAf >90 (>60 ml/min/1.73 sqM) Glucose 127 H (74-99) mg/dL Plasma Lactic Acid Reynaldo 1.7 (0.7-2.0) mmol/L Calcium 9.7 (8.4-10.2) mg/dL Total Bilirubin 3.1 H (0.2-1.3) mg/dL AST 905 H (14-36) U/L ALT 686 H (9-52) U/L Alkaline Phosphatase 256 H (38-126) U/L Total Protein 6.9 (6.3-8.2) g/dL Albumin 4.2 (3.5-5.0) g/dL Amylase 35 (30-110) U/L Lipase 86 (23-300) U/L Urine Color Urine Appearance (Clear) Urine pH (5.0-8.0) Ur Specific [place] (1.001-1.035) Urine Protein (Negative) Urine Glucose (UA) (Negative) Urine Ketones (Negative) Urine Blood (Negative) Urine Nitrite (Negative) Urine Bilirubin (Negative) Urine Urobilinogen (<2.0) mg/dL Ur Leukocyte Esterase (Negative) 11/28/17 Range/Units 19:59 WBC (3.8-10.6) k/uL RBC (3.80-5.40) m/uL Hgb (11.4-16.0) gm/dL Hct (34.0-46.0) % MCV (80.0-100.0) fL MCH (25.0-35.0) pg MCHC (31.0-37.0) g/dL RDW (11.5-15.5) % Plt Count (150-450) k/uL Neutrophils % % Lymphocytes % % Monocytes % % Eosinophils % % Basophils % % Neutrophils # (1.3-7.7) k/uL Lymphocytes # (1.0-4.8) k/uL Monocytes # (0-1.0) k/uL Eosinophils # (0-0.7) k/uL Basophils # (0-0.2) k/uL Sodium (137-145) mmol/L Potassium (3.5-5.1) mmol/L Chloride (98-107) mmol/L Carbon Dioxide (22-30) mmol/L Anion Gap mmol/L BUN (7-17) mg/dL Creatinine (0.52-1.04) mg/dL Est GFR (CKD-EPI)AfAm (>60 ml/min/1.73 sqM) Est GFR (CKD-EPI)NonAf (>60 ml/min/1.73 sqM) Glucose (74-99) mg/dL Plasma Lactic Acid Reynaldo (0.7-2.0) mmol/L Calcium (8.4-10.2) mg/dL Total Bilirubin (0.2-1.3) mg/dL AST (14-36) U/L ALT (9-52) U/L Alkaline Phosphatase (38-126) U/L Total Protein (6.3-8.2) g/dL Albumin (3.5-5.0) g/dL Amylase (30-110) U/L Lipase (23-300) U/L Urine Color Yellow Urine Appearance Clear (Clear) Urine pH 7.5 (5.0-8.0) Ur Specific [place] 1.031 (1.001-1.035) Urine Protein Trace H (Negative) Urine Glucose (UA) Negative (Negative) Urine Ketones Negative (Negative) Urine Blood Negative (Negative) Urine Nitrite Negative (Negative) Urine Bilirubin Negative (Negative) Urine Urobilinogen <2.0 (<2.0) mg/dL Ur Leukocyte Esterase Negative (Negative) - EKG Data EKG Comments: EKG obtained at 1844 shows sinus bradycardia with a ventricular rate of 57, PA interval 178, QR gnosticism 72, QT 404, QTC 393. No evidence of ST elevation or depression. (Afshan Boyd) - Radiology Data CT abdomen and pelvis with contrast was obtained, report was reviewed in its entirety. Impression by Dr. Alcaraz shows findings just cholecystitis, correlate clinically. There may be hepatic steatosis. Diverticulosis an additional findings of the above. (Afshan Boyd) Disposition <Afshan Boyd - Last Filed: 11/28/17 20:17> <Steven Mota - Last Filed: 11/28/17 21:32> Clinical Impression: Acute calculous cholecystitis, Elevated liver enzymes, Abdominal pain Disposition: ADMITTED IP TO THIS [facility] Condition: Stable Referrals: True Vasquez MD [Primary Care Provider] - 1-2 days
[2017-11-28 18:50] LABS: Basophils % (A) 0 %; Eosinophils # (A) 0.1 k/uL (0-0.7); Eosinophils % (A) 2 %; HCT 42.5 % (34.0-46.0); Lymphocytes # (A) 1.1 k/uL (1.0-4.8); Lymphocytes % (A) 14 %; MCH 28.6 pg (25.0-35.0); MCHC 32.9 g/dL (31.0-37.0); Mean Platelet Volume 8.3; Monocytes # (A) 0.6 k/uL (0-1.0); Monocytes % (A) 8 %; Neutrophils # (A) 5.6 k/uL (1.3-7.7); Neutrophils % (A) 74 %; Platelet Count 178 k/uL (150-450); RBC 4.89 m/uL (3.80-5.40); RDW 13.4 % (11.5-15.5); WBC 7.5 k/uL (3.8-10.6)
[2017-11-28 19:07] LABS: ALT 686 U/L (9-52); Albumin 4.2 g/dL (3.5-5.0); Alkaline Phosphatase 256 U/L (38-126); Amylase 35 U/L (30-110); Anion Gap 12 mmol/L; Blood Urea Nitrogen 12 mg/dL (7-17); Calcium 9.7 mg/dL (8.4-10.2); Carbon Dioxide 27 mmol/L (22-30); Chloride 103 mmol/L (98-107); Glucose 127 mg/dL (74-99); Lipase 86 U/L (23-300); Potassium 4.9 mmol/L (3.5-5.1); Sodium 142 mmol/L (137-145); Total Bilirubin 3.1 mg/dL (0.2-1.3); Total Protein 6.9 g/dL (6.3-8.2)
[2017-11-28 19:13] LABS: AST 905 U/L (14-36)
--- NOTE | 2017-11-28 20:06 | CT ---
EXAMINATION TYPE: CT abdomen pelvis w con DATE OF EXAM: 11/28/2017 COMPARISON: NONE HISTORY: Abdominal pain x3 days CT DLP: 1670.9 mGycm Automated exposure control for dose reduction was used. TECHNIQUE: Helical acquisition of images from the lung bases through the pelvis have been completed. CONTRAST: Performed without Oral Contrast and with IV Contrast, patient injected with 100 mL of Isovue 300. FINDINGS: There is a fixed hiatal hernia present. LUNG BASES: No significant abnormality is appreciated. AORTA: No significant abnormality is appreciated. LIVER/GB: Gallbladder shows abnormal wall thickening. There is a dependent high density focus compati ble with stone. Pericholecystic inflammatory changes are present. The liver shows low attenuation.. PANCREAS: No significant abnormality is seen. SPLEEN: No significant abnormality is seen. ADRENALS: No significant abnormality is seen. KIDNEYS: No significant abnormality is seen. REPRODUCTIVE ORGANS: No not seen BOWEL: Diverticular changes associated with the colon. The appendix is normal. FREE AIR: No Free Air visible. ASCITES: None visible. PELVIC ADENOPATHY: None visualized. RETROPERITONEAL ADENOPATHY: No Retroperitoneal Adenopathy visible. URINARY BLADDER: No significant abnormality is seen. OSSEOUS STRUCTURES: Degenerative disc changes are present in the visualized spine, facet arthropathy present in the lower lumbar spine. IMPRESSION: FINDINGS SUGGEST CHOLECYSTITIS, CORRELATE. THERE MAY BE HEPATIC STEATOSIS. Diverticulosis and additio nal findings above.
[2017-11-28 20:27] LABS: Appearance,Urine Clear (Clear); Bilirubin,Urine Negative (Negative); Blood,Urine Negative (Negative); Color,Urine Yellow; Glucose,Urine (UA) Negative (Negative); Ketones,Urine Negative (Negative); Leukocyte Esterase,Urine Negative (Negative); Nitrite,Urine Negative (Negative); PH, Urine 7.5 (5.0-8.0); Protein,Urine Trace (Negative); Specific Gravity,Urine 1.031 (1.001-1.035); Urobilinogen,Urine <2.0 mg/dL (<2.0)
[2017-11-28] MEDS ORDERED: PIPERACILLIN-TAZOBACTAM 3.375 GM in DEXTROSE/WATER 1 50ML.BAG IVPB STA (20:35)
--- NOTE | 2017-11-28 20:50 | US ---
EXAMINATION TYPE: US abdomen limited DATE OF EXAM: 11/28/2017 COMPARISON: CT same day CLINICAL HISTORY: Pain. Abnormal LFT's/ Pt states ABD pain EXAM MEASUREMENTS: Liver Length: 15.4 cm Gallbladder Wall: 0.6 cm CBD: 0.9 cm Right Kidney: 9.6 x 4.8 x 4.2 cm Large pt body habitus, somewhat difficult exam Pancreas: wnl, tail obscured by overlying bowel gas Liver: Difficult to penetrate, no evident mass Gallbladder: Probable "gravel" stones with thickened wall Evidence for sonographic Bourne's sign: Yes CBD: Dilated Right Kidney: wnl There is no ascites. IMPRESSION: Findings compatible with cholecystitis, dilated common bile duct. Consider hepatic steato sis, hepatocellular disease. Some limitations to the exam.
[2017-11-28 21:23] LABS: INR 0.9 (<1.2); Prothrombin Time 9.5 sec (9.0-12.0)
[2017-11-28] MEDS ORDERED: NALOXONE 0.4 MG/ML 1 ML VIAL IV PRN (21:33)
[2017-11-28 21:40] LABS: Partial Thromboplastin Time 20.3 sec (22.0-30.0)
[2017-11-28] MEDS: SODIUM CHLORIDE 0.9% 1,000 ML IV SCH (22:03)
[2017-11-28] MEDS: MORPHINE SULFATE/PF 10MG/10ML VL IVP PRN (23:10)
[2017-11-29] MEDS: MORPHINE SULFATE/PF 10MG/10ML VL IVP PRN ×2 (02:38→09:00)
[2017-11-29] MEDS: ONDANSETRON 4 MG/2 ML VIAL IVP PRN ×2 (02:38→10:42)
[2017-11-29] MEDS: PIPERACILLIN-TAZOBACTAM 3.375 GM in DEXTROSE/WATER 1 50ML.BAG IVPB SCH ×3 (04:17→20:53)
[2017-11-29] MEDS: SODIUM CHLORIDE 0.9% 1,000 ML IV SCH ×3 (06:37→22:56)
[2017-11-29] MEDS ORDERED: hydrOXYzine HCL 25 MG TAB PO SCH (09:30)
[2017-11-29] MEDS: PANTOPRAZOLE 40 MG/10 ML VIAL IV SCH ×2 (09:41→20:53)
[2017-11-29 10:40] LABS: Basophils % (A) 0 %; Eosinophils # (A) 0.1 k/uL (0-0.7); Eosinophils % (A) 2 %; HCT 39.7 % (34.0-46.0); HGB 13.4 gm/dL (11.4-16.0); Lymphocytes # (A) 1.3 k/uL (1.0-4.8); Lymphocytes % (A) 18 %; MCHC 33.8 g/dL (31.0-37.0); MCV 88.8 fL (80.0-100.0); Monocytes # (A) 0.6 k/uL (0-1.0); Monocytes % (A) 9 %; Neutrophils # (A) 4.9 k/uL (1.3-7.7); Neutrophils % (A) 68 %; Platelet Count 172 k/uL (150-450); RBC 4.47 m/uL (3.80-5.40); RDW 13.2 % (11.5-15.5); WBC 7.2 k/uL (3.8-10.6)
[2017-11-29 10:45] LABS: ALT 607 U/L (9-52); AST 621 U/L (14-36); Albumin 3.5 g/dL (3.5-5.0); Alkaline Phosphatase 235 U/L (38-126); Anion Gap 10 mmol/L; Blood Urea Nitrogen 10 mg/dL (7-17); Calcium 8.7 mg/dL (8.4-10.2); Carbon Dioxide 27 mmol/L (22-30); Chloride 105 mmol/L (98-107); Glucose 124 mg/dL (74-99); Potassium 4.3 mmol/L (3.5-5.1); Sodium 142 mmol/L (137-145); Total Bilirubin 5.6 mg/dL (0.2-1.3); Total Protein 6.1 g/dL (6.3-8.2)
--- NOTE | 2017-11-29 12:41 | P.GSCN ---
History of Present Illness Consult date: 11/29/17 Reason for Consult: Choledocholithiasis History of present illness: Patient known to our service from prior umbilical hernia repair. She came to the hospital with complaints of abdominal pain. Pain is sharp and severe. Pain does radiate to the back. She describes both upper and lower abdominal pains. No change in bowel habits. She was febrile. Her liver enzymes were elevated. CAT scan ultrasound were obtained. Patient's gallbladder bladder contains gallstones and she has a dilated bile duct. She was seen by GI and is scheduled for ERCP tomorrow. Review of Systems The patient denies any acute changes in vision or hearing, no dysphagia or odynophagia, no chest pain or shortness of breath, no dysuria or hematuria, no headache, no runny nose, no rectal bleeding or melena, no unexplained weight loss Past Medical History Past Medical History: Hyperlipidemia, Hypertension, Osteoarthritis (OA) Additional Past Medical History / Comment(s): OA BACK PAIN. UMBILICAL HERNIA repair with mesh. EPISODE OF CP IN 12/2016, CARDIAC W/U NL, FELT TO BE R/T STRESS History of Any Multi-Drug Resistant Organisms: None Reported Past Surgical History: Breast Surgery, Hysterectomy Additional Past Surgical History / Comment(s): LT Shoulder Rotator Cuff Repair. EXC LESION RT BREAST, BIOPSY. Past Anesthesia/Blood Transfusion Reactions: Family History of Problems w/ Anesthesia, Motion Sickness, Postoperative Nausea & Vomiting (PONV) Additional Past Anesthesia/Blood Transfusion Reaction / Comm: MOTHER HAS SEVERE PONV ALSO. Past Psychological History: Anxiety, Depression Additional Psychological History / Comment(s): TAKING CARE OF ELDERLY MOTHER Smoking Status: Never smoker Past Alcohol Use History: None Reported Past Drug Use History: None Reported - Past Family History Mother Family Medical History: Cancer, Coronary Artery Disease (CAD), Diabetes Mellitus , Myocardial Infarction ([place]) Additional Family Medical History / Comment(s): SKIN CA Brother(s) Family Medical History: AICD/Pacemaker, Coronary Artery Disease (CAD), Myocardial Infarction ([place]) Father Family Medical History: Coronary Artery Disease (CAD), CVA/TIA, Dementia, Myocardial Infarction ([place]) Medications and Allergies Home Medications Medication Instructions Recorded Confirmed Type Acetaminophen/Diphenhydramine 1 tab PO HS PRN 12/06/16 11/28/17 History [Tylenol PM 500-25mg] Atenolol 100 mg PO DAILY 12/06/16 11/28/17 History LORazepam [Ativan] 0.5 mg PO BID PRN 03/19/17 11/28/17 History Multivit/Folic Acid/Vit K1 1 each PO DAILY 03/19/17 11/28/17 History [One-A-Day Women's 50 Plus Tab] Naproxen Sodium [Aleve] 440 mg PO BID PRN 03/19/17 11/28/17 History Allergies Allergy/AdvReac Type Severity Reaction Status Date / Time No Known Allergies Allergy Verified 11/28/17 17:16 Surgical - Exam Vital Signs Temp Pulse Resp BP Pulse Ox 101.0 F H 60 20 220/84 96 11/28/17 17:13 11/28/17 17:13 11/28/17 17:13 11/28/17 17:13 11/28/17 17:13 Physical exam: General: Well-developed, well-nourished HEENT: Normocephalic, sclerae nonicteric Abdomen: Mild right upper quadrant tenderness, nondistended Extremities: No edema Neuro: Alert and oriented Results - Labs 11/29/17 10:10 11/29/17 10:10 Abnormal Lab Results - Last 24 Hours (Table) 11/28/17 11/28/17 11/28/17 Range/Units 18:40 19:59 20:50 APTT 20.3 L (22.0-30.0) sec Glucose 127 H (74-99) mg/dL Total Bilirubin 3.1 H (0.2-1.3) mg/dL AST 905 H (14-36) U/L ALT 686 H (9-52) U/L Alkaline Phosphatase 256 H (38-126) U/L Total Protein (6.3-8.2) g/dL Urine Protein Trace H (Negative) 11/29/17 Range/Units 10:10 APTT (22.0-30.0) sec Glucose 124 H (74-99) mg/dL Total Bilirubin 5.6 H (0.2-1.3) mg/dL AST 621 H (14-36) U/L ALT 607 H (9-52) U/L Alkaline Phosphatase 235 H (38-126) U/L Total Protein 6.1 L (6.3-8.2) g/dL Urine Protein (Negative) Diabetes panel 11/28/17 11/29/17 Range/Units 18:40 10:10 Sodium 142 142 (137-145) mmol/L Potassium 4.9 4.3 (3.5-5.1) mmol/L Chloride 103 105 (98-107) mmol/L Carbon Dioxide 27 27 (22-30) mmol/L BUN 12 10 (7-17) mg/dL Creatinine 0.60 0.73 (0.52-1.04) mg/dL Glucose 127 H 124 H (74-99) mg/dL Calcium 9.7 8.7 (8.4-10.2) mg/dL AST 905 H 621 H (14-36) U/L ALT 686 H 607 H (9-52) U/L Alkaline Phosphatase 256 H 235 H (38-126) U/L Total Protein 6.9 6.1 L (6.3-8.2) g/dL Albumin 4.2 3.5 (3.5-5.0) g/dL Calcium panel 11/28/17 11/29/17 Range/Units 18:40 10:10 Calcium 9.7 8.7 (8.4-10.2) mg/dL Albumin 4.2 3.5 (3.5-5.0) g/dL Pituitary panel 11/28/17 11/29/17 Range/Units 18:40 10:10 Sodium 142 142 (137-145) mmol/L Potassium 4.9 4.3 (3.5-5.1) mmol/L Chloride 103 105 (98-107) mmol/L Carbon Dioxide 27 27 (22-30) mmol/L BUN 12 10 (7-17) mg/dL Creatinine 0.60 0.73 (0.52-1.04) mg/dL Glucose 127 H 124 H (74-99) mg/dL Calcium 9.7 8.7 (8.4-10.2) mg/dL Adrenal panel 11/28/17 11/29/17 Range/Units 18:40 10:10 Sodium 142 142 (137-145) mmol/L Potassium 4.9 4.3 (3.5-5.1) mmol/L Chloride 103 105 (98-107) mmol/L Carbon Dioxide 27 27 (22-30) mmol/L BUN 12 10 (7-17) mg/dL Creatinine 0.60 0.73 (0.52-1.04) mg/dL Glucose 127 H 124 H (74-99) mg/dL Calcium 9.7 8.7 (8.4-10.2) mg/dL Total Bilirubin 3.1 H 5.6 H (0.2-1.3) mg/dL AST 905 H 621 H (14-36) U/L ALT 686 H 607 H (9-52) U/L Alkaline Phosphatase 256 H 235 H (38-126) U/L Total Protein 6.9 6.1 L (6.3-8.2) g/dL Albumin 4.2 3.5 (3.5-5.0) g/dL Assessment and Plan (1) Choledocholithiasis Narrative/Plan: Patient with choledocholithiasis suspect possible mild cholangitis. The patient doing well at this time. Agree with plans for ERCP tomorrow. Continue antibiotics. Patient will require eventual cholecystectomy either later during this admission or as an outpatient. Current Visit: Yes Status: Acute Code(s): K80.50 - CALCULUS OF BILE DUCT W/ O CHOLANGITIS OR CHOLECYST W/O OBST SNOMED Code(s): 023708740
--- NOTE | 2017-11-29 13:16 | CONS ---
CONSULTATION REQUESTING PHYSICIAN: Dr. Vasquez. REASON FOR CONSULTATION: Abdominal pain and elevated LFTs. HISTORY OF PRESENT ILLNESS: The patient is a 71-year-old pleasant white female who came in to the emergency room complaining of abdominal pain mostly in the epigastric right upper quadrant area for the last 2 days duration. The pain was mostly sharp, severe, associated with nausea but no emesis. It continued to progressively get worse and she came into the emergency room yesterday and was noted to have elevated LFTs. She said that she had low-grade fever at home. Never had these symptoms in the past. She had a CT of the abdomen and ultrasound of the gallbladder. The CT showed evidence of gallstones and mild biliary ductal dilation. This morning she still has some pain, but feels much better. No more fever. PAST MEDICAL HISTORY: Significant for hypertension, hyperlipidemia, degenerative joint disease. PAST SURGICAL HISTORY: Umbilical hernia repair, left shoulder repair, breast biopsy. MEDICATIONS: At home: Tylenol PM, Atenolol, Ativan, Aleve, multivitamin. ALLERGIES: None. SOCIAL HISTORY: No smoking or alcohol use. FAMILY HISTORY: Mother had coronary artery disease and diabetes mellitus. Father had coronary artery disease and dementia. REVIEW OF SYSTEMS: CARDIOPULMONARY: No chest pain, shortness of breath. GENITOURINARY: No dysuria or hematuria. MUSCULOSKELETAL: Unremarkable. SKIN: Unremarkable. ENDOCRINE: Unremarkable. PSYCHIATRIC: Unremarkable. NEUROLOGY: Unremarkable. ENT/VISION: Unremarkable. CONSTITUTIONAL: No recent weight loss. No fever, chills or night sweats. PHYSICAL EXAMINATION: She appears comfortable. No apparent distress. Vital signs are stable. Blood pressure is 129/51, pulse is 77, temperature 99.8. HEENT: Examination unremarkable. Conjunctivae pink. Sclerae anicteric. Oral cavity no lesions. NECK: No jugular venous distention or lymph node enlargement. Chest was clear to auscultation. HEART: Regular rate and rhythm. Abdomen is soft. Bowel sounds are positive. No organomegaly. EXTREMITIES: No pedal edema. SKIN: No rashes. NEUROLOGIC: Alert and oriented x3. No focal deficits. LABS: WBC 4.5, hemoglobin 14, platelets are normal. Bilirubin is 3.1, AST is 905, ALT 686, alkaline phosphatase 256. IMPRESSION: This is a lady who presents to the hospital with severe epigastric right upper quadrant abdominal pain for the last 2 days duration and noted to have elevated serum transaminases and bilirubin up to 3.1. Ultrasound of the abdomen did show evidence of gallstones and mild biliary ductal dilation, likely due to common bile duct stones. The patient had a low-grade fever at the time of admission to the hospital, but she is afebrile now. RECOMMENDATIONS: 1. Continue with broad-spectrum antibiotics. 2. Repeat labs today. 3. We will proceed with an ERCP tomorrow. I discussed with the patient as well as the family who are at the bedside the risks, benefits, complications of the procedure and they are agreeable to it. 4. Surgical consultation. 5. We will follow the patient closely during the hospital stay. MMNELLYL / IJN: [id number] /
[2017-11-29] MEDS ORDERED: ONDANSETRON 4 MG/2 ML VIAL IVP PRN (13:17)
[2017-11-29] MEDS: KETOROLAC 30 MG/ML 1 ML VIAL IVP PRN ×2 (14:02→20:14)
--- NOTE | 2017-11-29 14:32 | P.HPIM ---
History of Present Illness Patient is a pleasant 71-year-old female came in with complaints of bilateral lower quadrant abdominal pain predominantly in the right lower quadrant abdominal about 8/10 in severity nonradiating started on denied any nausea until the few minutes ago after she received morphine patient started having nausea. Patient is found to have gallbladder stones along with distended common bile duct with elevated liver enzymes patient doesn't have any fevers doesn't have any leukocytosis. Patient was evaluated by gastroenterology and surgery and patient is on Zosyn presently although there is no significant evidence of infection including ascending cholangitis but the possibility of that cannot be completely ruled out. Patient is scheduled for ERCP tomorrow. Patient was given a dose of ketorolac after which his pain has come down to 2l/ 10. Patient is already on Protonix Review of Systems REVIEW OF SYSTEMS: CONSTITUTIONAL: No fever, no malaise, no fatigue. HEENT: No recent visual problems or hearing problems. Denied any sore throat. CARDIOVASCULAR: No chest pain, orthopnea, PND, no palpitations, no syncope. PULMONARY: No shortness of breath, no cough, no hemoptysis. GASTROINTESTINAL: abdominal pain. NEUROLOGICAL: No headaches, no weakness, no numbness. HEMATOLOGICAL: Denies any bleeding or petechiae. GENITOURINARY: Denies any burning micturition, frequency, or urgency. MUSCULOSKELETAL/RHEUMATOLOGICAL: Denies any joint pain, swelling, or any muscle pain. ENDOCRINE: Denies any polyuria or polydipsia. The rest of the 14-point review of systems is negative. Past Medical History Past Medical History: Hyperlipidemia, Hypertension, Osteoarthritis (OA) Additional Past Medical History / Comment(s): OA BACK PAIN. UMBILICAL HERNIA repair with mesh. EPISODE OF CP IN 12/2016, CARDIAC W/U NL, FELT TO BE R/T STRESS History of Any Multi-Drug Resistant Organisms: None Reported Past Surgical History: Breast Surgery, Hysterectomy Additional Past Surgical History / Comment(s): LT Shoulder Rotator Cuff Repair. EXC LESION RT BREAST, BIOPSY. Past Anesthesia/Blood Transfusion Reactions: Family History of Problems w/ Anesthesia, Motion Sickness, Postoperative Nausea & Vomiting (PONV) Additional Past Anesthesia/Blood Transfusion Reaction / Comment(s): MOTHER HAS SEVERE PONV ALSO. Past Psychological History: Anxiety, Depression Additional Psychological History / Comment(s): TAKING CARE OF ELDERLY MOTHER Smoking Status: Never smoker Past Alcohol Use History: None Reported Past Drug Use History: None Reported - Past Family History Mother Family Medical History: Cancer, Coronary Artery Disease (CAD), Diabetes Mellitus , Myocardial Infarction ([place]) Additional Family Medical History / Comment(s): SKIN CA Brother(s) Family Medical History: AICD/Pacemaker, Coronary Artery Disease (CAD), Myocardial Infarction ([place]) Father Family Medical History: Coronary Artery Disease (CAD), CVA/TIA, Dementia, Myocardial Infarction ([place]) Medications and Allergies Home Medications Medication Instructions Recorded Confirmed Type Acetaminophen/Diphenhydramine 1 tab PO HS PRN 12/06/16 11/28/17 History [Tylenol PM 500-25mg] Atenolol 100 mg PO DAILY 12/06/16 11/28/17 History LORazepam [Ativan] 0.5 mg PO BID PRN 03/19/17 11/28/17 History Multivit/Folic Acid/Vit K1 1 each PO DAILY 03/19/17 11/28/17 History [One-A-Day Women's 50 Plus Tab] Naproxen Sodium [Aleve] 440 mg PO BID PRN 03/19/17 11/28/17 History Allergies Allergy/AdvReac Type Severity Reaction Status Date / Time No Known Allergies Allergy Verified 11/28/17 17:16 Physical Exam Vitals: Vital Signs Temp Pulse Pulse Resp BP BP Pulse Ox 11/29/17 07:00 99.3 F 77 16 129/51 96 11/28/17 23:00 97.0 F L 60 16 136/86 94 L 11/28/17 22:05 61 18 147/67 94 L 11/28/17 20:44 99.4 F 66 18 177/71 95 11/28/17 20:00 99.1 F 11/28/17 17:13 101.0 F H 60 20 220/84 96 Intake and Output 11/28/17 11/29/17 11/29/17 22:59 06:59 14:59 Other: # Voids 2 Weight 95.708 kg PHYSICAL EXAMINATION: GENERAL: The patient is alert and oriented x3, not in any acute distress. Well developed, well nourished. HEENT: Pupils are round and equally reacting to light. EOMI. No scleral icterus. No conjunctival pallor. Normocephalic, atraumatic. No pharyngeal erythema. No thyromegaly. CARDIOVASCULAR: S1 and S2 present. No murmurs, rubs, or gallops. PULMONARY: Chest is clear to auscultation, no wheezing or crackles. ABDOMEN: Soft, there is some right lower quadrant abdominal tenderness nondistended, normoactive bowel sounds. No palpable organomegaly. MUSCULOSKELETAL: No joint swelling or deformity. EXTREMITIES: No cyanosis, clubbing, or pedal edema. NEUROLOGICAL: Gross neurological examination did not reveal any focal deficits. SKIN: No rashes. Results CBC & Chem 7: 11/29/17 10:10 11/29/17 10:10 Labs: Abnormal Lab Results - Last 24 Hours (Table) 11/28/17 11/28/17 11/28/17 Range/Units 18:40 19:59 20:50 APTT 20.3 L (22.0-30.0) sec Glucose 127 H (74-99) mg/dL Total Bilirubin 3.1 H (0.2-1.3) mg/dL AST 905 H (14-36) U/L ALT 686 H (9-52) U/L Alkaline Phosphatase 256 H (38-126) U/L Total Protein (6.3-8.2) g/dL Urine Protein Trace H (Negative) 11/29/17 Range/Units 10:10 APTT (22.0-30.0) sec Glucose 124 H (74-99) mg/dL Total Bilirubin 5.6 H (0.2-1.3) mg/dL AST 621 H (14-36) U/L ALT 607 H (9-52) U/L Alkaline Phosphatase 235 H (38-126) U/L Total Protein 6.1 L (6.3-8.2) g/dL Urine Protein (Negative) Thrombosis Risk Factor Assmnt - Choose All That Apply Any of the Below Risk Factors Present?: Yes Each Factor Represents 1 point: Obesity (BMI >25) Other Risk Factors: Yes Each Risk Factor Represents 2 Points: Age 61-74 years Other congenital or acquired thrombophilia - If yes, enter type in comment: No Thrombosis Risk Factor Assessment Total Risk Factor Score: 3 Thrombosis Risk Factor Assessment Level: Moderate Risk Assessment and Plan Plan: -Abdominal pain probably due to cholelithiasis and choledocholithiasis: Patient will undergo ERCP tomorrow continue with Toradol for pain. Ascending cholangitis cannot be excluded because of which patient is on antibiotics to be continued. -Hyperlipidemia -Hypertension -Osteoarthritis -obesity for above-mentioned chronic medical problems patient will be resumed and continued on appropriate home medications
[2017-11-30] MEDS: PIPERACILLIN-TAZOBACTAM 3.375 GM in DEXTROSE/WATER 1 50ML.BAG IVPB SCH ×3 (04:03→22:14)
[2017-11-30] MEDS: KETOROLAC 30 MG/ML 1 ML VIAL IVP PRN ×2 (04:12→10:30)
[2017-11-30] MEDS: SODIUM CHLORIDE 0.9% 1,000 ML IV SCH ×3 (06:27→22:15)
--- NOTE | 2017-11-30 07:52 | P.PN ---
Subjective Progress Note Date: 11/30/17 Principal diagnosis: The patient is here essentially for cholecystitis. ERCP is pending today. She says significant right upper quadrant pain. No fever or chills. No voiding difficulties otherwise stated. Objective - Vital Signs Vital signs: Vital Signs Temp 98.7 F 11/30/17 06:15 Pulse 64 11/30/17 06:15 Resp 16 11/30/17 06:15 BP 138/65 11/30/17 06:15 Pulse Ox 95 11/30/17 06:15 Intake & Output 11/29/17 11/30/17 11/30/17 18:59 06:59 18:59 Intake Total 480 Output Total 2 Balance 478 Intake: Oral 480 Output: Emesis 2 Other: # Voids 1 1 # Bowel Movements 0 - Constitutional General appearance: Present: obese - EENT Eyes: Absent: abnormal pupil - Respiratory Respiratory: bilateral: CTA - Cardiovascular Rhythm: regular Heart sounds: normal: S1, S2 Abnormal Heart Sounds: Absent: S3 Gallop - Gastrointestinal Gastrointestinal Comment(s): The patient has right upper quadrant pain on palpation. General gastrointestinal: Present: distended Localized gastrointestinal: tender: RUQ - Integumentary Integumentary: Absent: cellulitis - Labs CBC & Chem 7: 11/29/17 10:10 11/29/17 10:10 Labs: Abnormal Lab Results - Last 24 Hours (Table) 11/29/17 Range/Units 10:10 Glucose 124 H (74-99) mg/dL Total Bilirubin 5.6 H (0.2-1.3) mg/dL AST 621 H (14-36) U/L ALT 607 H (9-52) U/L Alkaline Phosphatase 235 H (38-126) U/L Total Protein 6.1 L (6.3-8.2) g/dL Microbiology - Last 24 Hours (Table) 11/28/17 18:40 Blood Culture - Preliminary Blood No Growth after 24 hours Assessment and Plan (1) Abdominal pain Current Visit: Yes Status: Acute Code(s): R10.9 - UNSPECIFIED ABDOMINAL PAIN SNOMED Code(s): 78683283 (2) Acute calculous cholecystitis Current Visit: Yes Status: Acute Code(s): K80.00 - CALCULUS OF GALLBLADDER W ACUTE CHOLECYST W/O OBSTRUCTION SNOMED Code(s): 39988342 (3) Choledocholithiasis Current Visit: Yes Status: Acute Code(s): K80.50 - CALCULUS OF BILE DUCT W/ O CHOLANGITIS OR CHOLECYST W/O OBST SNOMED Code(s): 310767672 (4) Elevated liver enzymes Current Visit: Yes Status: Acute Code(s): R74.8 - ABNORMAL LEVELS OF OTHER SERUM ENZYMES SNOMED Code(s): 485204710 Plan: Check CMP in a.m. Appreciate surgical input. ERCP is now pending. See orders otherwise. Time with Patient: Less than 30
[2017-11-30] MEDS: PANTOPRAZOLE 40 MG/10 ML VIAL IV SCH ×2 (08:36→22:14)
[2017-11-30 08:40] LABS: HCT 35.8 % (34.0-46.0); HGB 11.6 gm/dL (11.4-16.0); MCH 28.7 pg (25.0-35.0); MCHC 32.3 g/dL (31.0-37.0); MCV 88.9 fL (80.0-100.0); Mean Platelet Volume 8.5; Platelet Count 160 k/uL (150-450); RBC 4.03 m/uL (3.80-5.40); RDW 13.5 % (11.5-15.5); WBC 6.7 k/uL (3.8-10.6)
[2017-11-30 09:01] LABS: ALT 472 U/L (9-52); AST 419 U/L (14-36); Albumin 2.9 g/dL (3.5-5.0); Alkaline Phosphatase 203 U/L (38-126); Anion Gap 7 mmol/L; Blood Urea Nitrogen 11 mg/dL (7-17); Calcium 8.2 mg/dL (8.4-10.2); Carbon Dioxide 29 mmol/L (22-30); Chloride 106 mmol/L (98-107); Glucose 85 mg/dL (74-99); Potassium 3.9 mmol/L (3.5-5.1); Sodium 142 mmol/L (137-145); Total Bilirubin 3.1 mg/dL (0.2-1.3); Total Protein 5.2 g/dL (6.3-8.2)
[2017-11-30] MEDS ORDERED: INDOMETHACIN 50MG SUPPOSITORY RECTAL ONE (09:21)
--- NOTE | 2017-11-30 11:35 | P.PN ---
<Sujey Aldana Ava - Last Filed: 11/30/17 11:20> Subjective Progress Note Date: 11/30/17 8-year-old female seen at bedside. Patient reports she continues to have midepigastric pain comes in waves with a nausea sensation. Patient states the pain is sharp and severe radiates into the back. CAT scan ultrasound gallbladder contains gallstones with a dilated bile duct Patient is scheduled today for an ERCP per GI. Patient is mildly jaundiced. Total bilirubin this morning is down to 3.1 was 5.6 AST and ALT are trending down Objective - Vital Signs Vital signs: Vital Signs Temp 98.7 F 11/30/17 06:15 Pulse 64 11/30/17 06:15 Resp 16 11/30/17 06:15 BP 138/65 11/30/17 06:15 Pulse Ox 95 11/30/17 06:15 Intake & Output 11/29/17 11/30/17 11/30/17 18:59 06:59 18:59 Intake Total 480 Output Total 2 Balance 478 Intake: Oral 480 Output: Emesis 2 Other: Voiding Method Toilet # Voids 1 1 # Bowel Movements 0 - Exam Physical exam 71-year-old female reports having midepigastric pain radiates across the upper abdomen with a nausea sensation slightly jaundiced in appearance Lungs adequate air movement bilaterally no cough noted no shortness of breath Heart S1-S2 audible regular denying chest pain Abdomen nondistended tenderness to the right upper quadrant reports ways of nausea no vomiting Extremities no edema - Labs CBC & Chem 7: 11/30/17 07:34 11/30/17 07:34 Labs: Abnormal Lab Results - Last 24 Hours (Table) 11/30/17 Range/Units 07:34 Calcium 8.2 L (8.4-10.2) mg/dL Total Bilirubin 3.1 H (0.2-1.3) mg/dL AST 419 H (14-36) U/L ALT 472 H (9-52) U/L Alkaline Phosphatase 203 H (38-126) U/L Total Protein 5.2 L (6.3-8.2) g/dL Albumin 2.9 L (3.5-5.0) g/dL Microbiology - Last 24 Hours (Table) 11/28/17 18:40 Blood Culture - Preliminary Blood No Growth after 24 hours Assessment and Plan Assessment: Impression Present on admission bilateral lower quadrant abdominal pain predominantly right suspect due to choledocholithiasis possible mild cholangitis. Obesity BMI 36 Osteoarthritis Hyperlipidemia Present on admission elevated AST and ALT persist Plan Schedule ERCP today further surgical recommendations pending Monitor labs Pain control DVT and GI prophylaxis Will require cholecystectomy the timing to be determined The above impression and plan of care have been discussed and directed by signing physician. Sujey Aldana nurse practitioner acting as scribe for signing physician. <Sravan Camara - Last Filed: 11/30/17 16:57> Objective - Vital Signs Vital signs: Vital Signs Temp 97.2 F L 11/30/17 14:00 Pulse 67 11/30/17 14:00 Resp 18 11/30/17 14:00 BP 140/71 11/30/17 14:00 Pulse Ox 97 11/30/17 14:00 Intake & Output 11/29/17 11/30/17 11/30/17 18:59 06:59 18:59 Intake Total 480 450 Output Total 2 Balance 478 450 Intake: IV 450 Oral 480 Output: Emesis 2 Other: Voiding Method Toilet # Voids 1 1 2 # Bowel Movements 0 - Labs CBC & Chem 7: 11/30/17 07:34 11/30/17 07:34 Labs: Abnormal Lab Results - Last 24 Hours (Table) 11/30/17 Range/Units 07:34 Calcium 8.2 L (8.4-10.2) mg/dL Total Bilirubin 3.1 H (0.2-1.3) mg/dL AST 419 H (14-36) U/L ALT 472 H (9-52) U/L Alkaline Phosphatase 203 H (38-126) U/L Total Protein 5.2 L (6.3-8.2) g/dL Albumin 2.9 L (3.5-5.0) g/dL Microbiology - Last 24 Hours (Table) 11/28/17 18:40 Blood Culture - Preliminary Blood No Growth after 24 hours Assessment and Plan Assessment: As above. Patient doing well today. ERCP showed no residual choledocholithiasis. Pain is improved. We'll repeat labs tomorrow. Will tentatively plan lap aldo tomorrow evening. (1) Choledocholithiasis Current Visit: Yes Status: Acute Code(s): K80.50 - CALCULUS OF BILE DUCT W/ O CHOLANGITIS OR CHOLECYST W/O OBST SNOMED Code(s): 689320762
[2017-11-30] MEDS ORDERED: PROPOFOL 10 MG/ML 20 ML VIAL IV ONE (11:41)
[2017-11-30] MEDS ORDERED: LIDOCAINE 1% INJ 10MG/ML (20 ML MDV) ONE (11:41)
[2017-11-30] MEDS ORDERED: GLYCOPYRROLATE 0.2 MG/ML 2 ML VIAL ONE (11:41)
[2017-11-30] MEDS ORDERED: KETAMINE 10 MG/ML 20 ML VIAL ONE (11:41)
[2017-11-30] MEDS ORDERED: fentaNYL (PF) 50 MCG/ML 2 ML AMP ONE (11:41)
[2017-11-30] MEDS ORDERED: MIDAZOLAM 2 MG/2 ML VIAL ONE (11:41)
[2017-11-30] MEDS ORDERED: diphenhydrAMINE 50 MG/ML 1 ML VIAL ONE (11:41)
[2017-11-30] MEDS ORDERED: IV FLUID CONTINUATION 1,000 ML IV ONE (11:45)
[2017-11-30] MEDS ORDERED: IOHEXOL 350 MG/ML 50ML BOTTLE MISCELLANE ONE (12:38)
--- NOTE | 2017-11-30 12:42 | P.PCN ---
Date of Procedure: 11/30/17 Procedure(s) Performed: Brief history: Patient is a 71-year-old pleasant lady scheduled for an ERCP as part of evaluation of abdominal pain and elevated serum transaminases, jaundice for the last 2 days' duration.ultrasound and CAT scan showed evidence of cough gallstones and mild dilation of common bile duct. T bili was up to 5.1 g/dL. Because of a clinical suspicion for CBD stones she is scheduled for an ERCP today. Procedure performed: ERCPwith biliary sphincterotomy and balloon extraction Preoperative diagnoses:abdominal pain, elevated LFTs and jaundice of 2 days' duration IV sedation per anesthesia: Procedure: After informed consent was obtained from the patient and after the risks benefits and complications including bleeding perforation and pancreatitis explained in detail the patient was brought into the endoscopy unit. The patient was placed in prone position and IV conscious sedation was administered by anesthesia under continuous monitoring. The Olympus side-viewing duodenoscope was then inserted into the mouth and esophagus intubated without any difficulty. The scope was gradually advanced into the stomach and duodenum. The major papilla was identified without any difficulty.there was a large. Biliary diverticulum identified. Initial cannulation resulted in presentation the pancreatic duct that appeared normal. Subsequent cannulation resulted in opacification of the common bile duct which appears slightly dilated measuring about 8 mm in diameter and there was a very faint small filling defect noted in the distal common bile duct and there was no drainage of the bile noted. At this time I proceeded with a biliary sphincterotomyy after the catheter was exchanged over a guidewireat 12 O'CLOCK position and this was extended to 1 cm. Following this a 12 mm balloon was passed into the proximal CBD and was gently sweep along the CBD and did not see any stones exiting the ampulla. The patient. 2 g was performed and there was free flowing of bile noted and no other filling defects were seen. Procedure was terminated and the patient tolerated the procedure well. Impression: 1. Normal pancreatic duct 2. Slightly dilated common bile duct with a faint filling defect noted in the distal CBD, status post biliary sphincterotomy and balloon extraction as described above. Recommendations: The findings of this examination were discussed with the patient.she will be started on clear liquid diet today. Antibiotics will be continued. Labs will be repeated in the morning.
--- NOTE | 2017-11-30 13:04 | FL ---
EXAMINATION TYPE: FL ERCP biliary duct only DATE OF EXAM: 11/30/2017 CLINICAL HISTORY: Abnormal CT and ultrasound. Possible acute cholecystitis. TECHNIQUE: Fluoroscopy. COMPARISON: CT abdomen pelvis from 2 days ago. FINDINGS: Fluoroscopic guidance was provided during ERCP procedure performed by Dr. Thomas. A total of 2.55 minutes of fluoroscopic time was utilized during the procedure and 2 spot images are acquired . Images acquired show successful cannulization and opacification of pancreatic duct and common bile duct without filling defect or suspicious dilatation on images saved. Please refer to procedure note for further details. IMPRESSION: As Above.
[2017-12-01] MEDS: KETOROLAC 30 MG/ML 1 ML VIAL IVP PRN ×4 (02:45→21:21)
[2017-12-01] MEDS: PIPERACILLIN-TAZOBACTAM 3.375 GM in DEXTROSE/WATER 1 50ML.BAG IVPB SCH ×3 (04:04→19:51)
[2017-12-01] MEDS: SODIUM CHLORIDE 0.9% 1,000 ML IV SCH ×3 (08:32→19:51)
[2017-12-01] MEDS: PANTOPRAZOLE 40 MG/10 ML VIAL IV SCH ×2 (08:39→20:55)
[2017-12-01 08:54] LABS: ALT 339 U/L (9-52); AST 192 U/L (14-36); Albumin 2.7 g/dL (3.5-5.0); Alkaline Phosphatase 171 U/L (38-126); Anion Gap 10 mmol/L; Blood Urea Nitrogen 13 mg/dL (7-17); Calcium 8.4 mg/dL (8.4-10.2); Carbon Dioxide 26 mmol/L (22-30); Chloride 109 mmol/L (98-107); Glucose 80 mg/dL (74-99); Potassium 4.1 mmol/L (3.5-5.1); Sodium 145 mmol/L (137-145); Total Bilirubin 1.3 mg/dL (0.2-1.3); Total Protein 5.1 g/dL (6.3-8.2)
[2017-12-01 08:57] LABS: Basophils % (A) 0 %; Eosinophils # (A) 0.3 k/uL (0-0.7); Eosinophils % (A) 4 %; HCT 33.6 % (34.0-46.0); HGB 11.4 gm/dL (11.4-16.0); Lymphocytes % (A) 14 %; MCH 29.6 pg (25.0-35.0); MCV 87.2 fL (80.0-100.0); Mean Platelet Volume 7.8; Monocytes # (A) 0.6 k/uL (0-1.0); Monocytes % (A) 8 %; Neutrophils # (A) 5.2 k/uL (1.3-7.7); Neutrophils % (A) 72 %; Platelet Count 180 k/uL (150-450); RBC 3.86 m/uL (3.80-5.40); RDW 13.2 % (11.5-15.5); WBC 7.2 k/uL (3.8-10.6)
--- NOTE | 2017-12-01 12:15 | P.PN ---
Subjective Progress Note Date: 12/01/17 Principal diagnosis: Continuing care This is a continue progress on a 71-year-old white female essentially admitted for acute cholangitis/cholecystitis. ERCP did not show significant stone removal. Otherwise, general surgery is scheduled for cholecystectomy. The patient is quite uncomfortable this morning Objective - Vital Signs Vital signs: Vital Signs Temp 96.8 F L 12/01/17 09:04 Pulse 67 12/01/17 09:04 Resp 16 12/01/17 09:04 BP 140/80 12/01/17 09:04 Pulse Ox 96 12/01/17 09:04 Intake & Output 11/30/17 12/01/17 12/01/17 18:59 06:59 18:59 Intake Total 450 Balance 450 Intake: IV 450 Other: Voiding Method Toilet Toilet # Voids 1 3 # Bowel Movements 1 1 - Constitutional General appearance: Present: obese - EENT Eyes: Absent: abnormal pupil - Respiratory Respiratory: bilateral: CTA - Cardiovascular Rhythm: regular Heart sounds: normal: S1, S2 - Gastrointestinal General gastrointestinal: Present: decreased bowel sounds Localized gastrointestinal: tender: RUQ - Integumentary Integumentary: Absent: cellulitis - Labs CBC & Chem 7: 12/01/17 08:04 12/01/17 08:04 Labs: Abnormal Lab Results - Last 24 Hours (Table) 12/01/17 12/01/17 Range/Units 08:04 08:04 Hct 33.6 L (34.0-46.0) % Chloride 109 H (98-107) mmol/L AST 192 H (14-36) U/L ALT 339 H (9-52) U/L Alkaline Phosphatase 171 H (38-126) U/L Total Protein 5.1 L (6.3-8.2) g/dL Albumin 2.7 L (3.5-5.0) g/dL Microbiology - Last 24 Hours (Table) 11/28/17 18:40 Blood Culture - Preliminary Blood No Growth after 48 hours Assessment and Plan (1) Abdominal pain Current Visit: Yes Status: Acute Code(s): R10.9 - UNSPECIFIED ABDOMINAL PAIN SNOMED Code(s): 77491216 (2) Acute calculous cholecystitis Current Visit: Yes Status: Acute Code(s): K80.00 - CALCULUS OF GALLBLADDER W ACUTE CHOLECYST W/O OBSTRUCTION SNOMED Code(s): 32429531 (3) Choledocholithiasis Current Visit: Yes Status: Acute Code(s): K80.50 - CALCULUS OF BILE DUCT W/ O CHOLANGITIS OR CHOLECYST W/O OBST SNOMED Code(s): 553546930 (4) Elevated liver enzymes Current Visit: Yes Status: Acute Code(s): R74.8 - ABNORMAL LEVELS OF OTHER SERUM ENZYMES SNOMED Code(s): 000780892 Plan: Await surgical evaluation for probable cholecystectomy today. We'll continue to follow. See orders otherwise.
--- NOTE | 2017-12-01 13:10 | P.PN ---
<JovanSujey M - Last Filed: 12/01/17 13:06> Subjective Progress Note Date: 12/01/17 71-year-old seen at bedside. Patient reports continues to have diffuse abdominal pain comes in waves described as sharp cramping sensation with nausea feeling. Patient underwent an ERCP yesterday normal pancreatic duct slightly dilated common bile duct. AST and ALT are improving total bili is down to 1.3 this morning The plan today is for an laparoscopic cholecystectomy later this afternoon Objective - Vital Signs Vital signs: Vital Signs Temp 96.8 F L 12/01/17 09:04 Pulse 67 12/01/17 09:04 Resp 16 12/01/17 09:04 BP 140/80 12/01/17 09:04 Pulse Ox 96 12/01/17 09:04 Intake & Output 11/30/17 12/01/17 12/01/17 18:59 06:59 18:59 Intake Total 450 Balance 450 Intake: IV 450 Other: Voiding Method Toilet Toilet Toilet # Voids 1 3 # Bowel Movements 1 1 - Exam Physical exam 71-year-old female resting in bed just received pain medication reports having midepigastric pain radiates across the upper abdomen with a nausea sensation slightly jaundiced in appearance Lungs adequate air movement bilaterally no cough noted no shortness of breath Heart S1-S2 audible regular denying chest pain no murmur noted Abdomen nondistended tenderness to the right upper quadrant reports ways of nausea no vomiting Extremities no edema - Labs CBC & Chem 7: 12/01/17 08:04 12/01/17 08:04 Labs: Abnormal Lab Results - Last 24 Hours (Table) 12/01/17 12/01/17 Range/Units 08:04 08:04 Hct 33.6 L (34.0-46.0) % Chloride 109 H (98-107) mmol/L AST 192 H (14-36) U/L ALT 339 H (9-52) U/L Alkaline Phosphatase 171 H (38-126) U/L Total Protein 5.1 L (6.3-8.2) g/dL Albumin 2.7 L (3.5-5.0) g/dL Microbiology - Last 24 Hours (Table) 11/28/17 18:40 Blood Culture - Preliminary Blood No Growth after 48 hours Assessment and Plan Assessment: Impression Present on admission bilateral lower quadrant abdominal pain predominantly right suspect due to choledocholithiasis possible mild cholangitis. Obesity BMI 36 Osteoarthritis Hyperlipidemia Present on admission elevated AST and ALT improving trending down Status post ERCP done on November 30 normal pancreatic duct slightly dilated common bile duct Plan Cajoled for a lap cholecystectomy later this afternoon Monitor labs Pain control DVT and GI prophylaxis Further surgical recommendations pending The above impression and plan of care have been discussed and directed by signing physician. Sujey Aldana nurse practitioner acting as scribe for signing physician. <Sravan Camara - Last Filed: 12/01/17 20:06> Objective - Vital Signs Vital signs: Vital Signs Temp 97.1 F L 12/01/17 19:55 Pulse 71 12/01/17 19:55 Resp 17 12/01/17 19:55 BP 161/74 12/01/17 19:55 Pulse Ox 95 12/01/17 19:55 Intake & Output 12/01/17 12/01/17 12/02/17 06:59 18:59 06:59 Intake Total 550 Output Total 10 Balance 540 Weight 95.708 kg Intake: IV 550 Output: Estimated Blood Loss 10 Other: Voiding Method Toilet Toilet # Voids 3 3 # Bowel Movements 1 - Labs CBC & Chem 7: 12/01/17 08:04 12/01/17 08:04 Labs: Abnormal Lab Results - Last 24 Hours (Table) 12/01/17 12/01/17 Range/Units 08:04 08:04 Hct 33.6 L (34.0-46.0) % Chloride 109 H (98-107) mmol/L AST 192 H (14-36) U/L ALT 339 H (9-52) U/L Alkaline Phosphatase 171 H (38-126) U/L Total Protein 5.1 L (6.3-8.2) g/dL Albumin 2.7 L (3.5-5.0) g/dL Microbiology - Last 24 Hours (Table) 11/28/17 18:40 Blood Culture - Preliminary Blood No Growth after 48 hours Assessment and Plan Assessment: As well. Patient will have lap aldo today. (1) Choledocholithiasis Current Visit: Yes Status: Acute Code(s): K80.50 - CALCULUS OF BILE DUCT W/ O CHOLANGITIS OR CHOLECYST W/O OBST SNOMED Code(s): 410035495
[2017-12-01 13:21] VITALS: BMI 36.2
[2017-12-01] MEDS ORDERED: IV FLUID CONTINUATION 1,000 ML IV ONE (16:10)
[2017-12-01] MEDS ORDERED: HEPARIN SODIUM,PORCINE 5,000 UNIT/ML 1 ML VIAL SQ ONE (16:31)
[2017-12-01] MEDS ORDERED: ONDANSETRON 4 MG/2 ML VIAL IVP ONE (16:39)
[2017-12-01] MEDS ORDERED: DEXAMETHASONE SOD PHOS (MDV) 100 MG/10 ML VIAL IVP ONE (16:40)
[2017-12-01] MEDS ORDERED: MIDAZOLAM 2 MG/2 ML VIAL IVP ONE (16:56)
[2017-12-01] MEDS ORDERED: GLYCOPYRROLATE 0.2 MG/ML 2 ML VIAL ONE (17:27)
[2017-12-01] MEDS ORDERED: NEOSTIGMINE 1 MG/ML 10 ML VIAL ONE (17:27)
[2017-12-01] MEDS ORDERED: BUPIVACAINE (PF) 0.25% 30 ML VIAL SQ ONE (17:27)
[2017-12-01] MEDS ORDERED: ROCURONIUM BROMIDE 10 MG/ML 10 ML VIAL IV ONE (17:27)
[2017-12-01] MEDS ORDERED: fentaNYL (PF) 50 MCG/ML 2 ML AMP ONE (17:27)
[2017-12-01] MEDS ORDERED: MIDAZOLAM 2 MG/2 ML VIAL ONE (17:27)
[2017-12-01] MEDS ORDERED: LIDOCAINE 1% INJ 10MG/ML (20 ML MDV) ONE (17:27)
[2017-12-01] MEDS ORDERED: PROPOFOL 10 MG/ML 20 ML VIAL IV ONE (17:27)
[2017-12-01] MEDS ORDERED: SUCCINYLCHOLINE CHLORIDE 100 MG/5 ML SYR IV ONE (17:27)
[2017-12-01] MEDS ORDERED: LABETALOL 5 MG/ML VIAL MDV IVP ONE ×2 (19:04→19:12)
[2017-12-01] MEDS ORDERED: fentaNYL (PF) 50 MCG/ML 2 ML AMP IV ONE (19:07)
--- NOTE | 2017-12-01 20:11 | P.OP ---
Date of Procedure: 12/01/17 Procedure(s) Performed: PREOPERATIVE DIAGNOSIS: Acute calculus cholecystitis/choledocholithiasis POSTOPERATIVE DIAGNOSIS: Same PROCEDURE: Laparoscopic cholecystectomy SURGEON: Jax EBL: Minimal see anesthesia record ANESTHESIA: Gen. COMPLICATIONS: None OPERATIVE PROCEDURE: The patient was brought and placed on the operating room table in the supine position. The patient was placed under general anesthesia at that time. The abdomen was prepped and draped in the usual sterile fashion. A small horizontal incision was made in the left upper quadrant. Entrance into the perineal cavity at took place using the 5 mm optical trocar. Insufflation took place up to 15 mmHg. an additional 5 mm trocar was placed in the supraumbilical location under direct visualization. 2 additional 5 mm trochars were placed in the right upper quadrant under direct visualization. A 12 mm trocar was advanced into the epigastric incision site. The gallbladder was acutely inflamed. It was quite edematous and inflamed. The gallbladder was retracted superiorly and laterally. The peritoneum overlying the infundibulum was bluntly dissected. The patient's cystic duct was visualized. The junction between the cystic duct common and hepatic duct was identified. The cystic duct was edematous as well and somewhat distended which goes along with her history of choledocholithiasis. The cystic duct was controlled and ligated using a 2-0 Ethibond stitch tied down using the tie knot device. 2 additional clips were placed on the patient's side as well as a clip on the specimen side. The cystic artery was identified and clipped as well. A small vessel was seen along the gallbladder fossa and clipped as well. The gallbladder was then removed from the liver bed using electrocautery. The gallbladder was then removed from the epigastric trocar site with an Endo Catch bag. The gallbladder fossa was irrigated with saline. There was no evidence of any bleeding or biliary drainage seen. I placed a drain in the gallbladder fossa exiting through the most lateral right upper quadrant trocar site. His was sutured to the skin using a 3-0 silk stitch. The trochars were then removed. The fascia at the 12 millimeter site was closed using a ShivaLucius Aysha 0 Vicryl stitch. The skin at all 4 sites was closed using a 4-0 Monocryl stitch. At the end of this procedure the sponge and needle counts were correct. DISPOSITION: Stable to the recovery room
[2017-12-01] MEDS: HYDROcodone/APAP 5-325MG 1 EACH TAB PO PRN (23:55)
[2017-12-02] MEDS: PIPERACILLIN-TAZOBACTAM 3.375 GM in DEXTROSE/WATER 1 50ML.BAG IVPB SCH ×3 (04:36→20:59)
[2017-12-02] MEDS: SODIUM CHLORIDE 0.9% 1,000 ML IV SCH (05:37)
--- NOTE | 2017-12-02 07:10 | P.PN ---
Subjective Progress Note Date: 12/02/17 Principal diagnosis: Cholecystitis with choledocholithiasis Patient doing well today. She says her pain that she was having preoperatively is improved. She is hungry. Morning labs are pending. Objective - Vital Signs Vital signs: Vital Signs Temp 97.3 F L 12/02/17 06:04 Pulse 73 12/02/17 06:04 Resp 18 12/02/17 06:04 BP 139/82 12/02/17 06:04 Pulse Ox 95 12/02/17 06:04 Intake & Output 12/01/17 12/02/17 12/02/17 18:59 06:59 18:59 Intake Total 550 Output Total 10 30 Balance 540 -30 Weight 95.708 kg Intake: IV 550 Output: Drainage 30 Right Abdomen 30 Estimated Blood Loss 10 Other: Voiding Method Toilet # Voids 3 3 - Exam Abdomen: Soft, nondistended, mild tenderness, dressings clean and dry, FAVIAN draining serosanguineous - Labs CBC & Chem 7: 12/01/17 08:04 12/01/17 08:04 Labs: Abnormal Lab Results - Last 24 Hours (Table) 12/01/17 12/01/17 Range/Units 08:04 08:04 Hct 33.6 L (34.0-46.0) % Chloride 109 H (98-107) mmol/L AST 192 H (14-36) U/L ALT 339 H (9-52) U/L Alkaline Phosphatase 171 H (38-126) U/L Total Protein 5.1 L (6.3-8.2) g/dL Albumin 2.7 L (3.5-5.0) g/dL Microbiology - Last 24 Hours (Table) 11/28/17 18:40 Blood Culture - Preliminary Blood No Growth after 72 hours Assessment and Plan (1) Choledocholithiasis Narrative/Plan: Recheck labs this morning. Anticipate discharge tomorrow. Hopefully remove FAVIAN drain prior to discharge. Current Visit: Yes Status: Acute Code(s): K80.50 - CALCULUS OF BILE DUCT W/ O CHOLANGITIS OR CHOLECYST W/O OBST SNOMED Code(s): 163677963
[2017-12-02] MEDS: HYDROcodone/APAP 5-325MG 1 EACH TAB PO PRN ×3 (08:08→20:59)
[2017-12-02] MEDS: PANTOPRAZOLE 40 MG/10 ML VIAL IV SCH ×2 (08:09→20:59)
[2017-12-02] MEDS ORDERED: ALPRAZolam 0.5 MG TAB PO PRN (08:16)
[2017-12-02 09:07] LABS: HCT 33.3 % (34.0-46.0); HGB 11.5 gm/dL (11.4-16.0); MCH 30.2 pg (25.0-35.0); MCHC 34.5 g/dL (31.0-37.0); MCV 87.5 fL (80.0-100.0); Mean Platelet Volume 7.9; Platelet Count 214 k/uL (150-450); RBC 3.81 m/uL (3.80-5.40); RDW 13.7 % (11.5-15.5); WBC 7.6 k/uL (3.8-10.6)
[2017-12-02 09:46] LABS: ALT 256 U/L (9-52); AST 95 U/L (14-36); Alkaline Phosphatase 164 U/L (38-126); Anion Gap 11 mmol/L; Blood Urea Nitrogen 15 mg/dL (7-17); Calcium 8.1 mg/dL (8.4-10.2); Carbon Dioxide 26 mmol/L (22-30); Chloride 105 mmol/L (98-107); Glucose 176 mg/dL (74-99); Potassium 4.5 mmol/L (3.5-5.1); Sodium 142 mmol/L (137-145); Total Bilirubin 0.8 mg/dL (0.2-1.3); Total Protein 5.5 g/dL (6.3-8.2)
--- NOTE | 2017-12-02 20:05 | P.PN ---
Subjective Principal diagnosis: Continuing care The patient is postop day #1 for cholecystectomy. The patient is doing quite well and is in normal "postoperative pain. The patient otherwise seems to be tolerating surgically allowed diet. No voiding symptoms. She is asking for Xanax intermittently for insomnia. Objective - Vital Signs Vital signs: Vital Signs Temp 96.9 F L 12/02/17 15:00 Pulse 69 12/02/17 16:26 Resp 16 12/02/17 16:26 BP 137/95 12/02/17 15:00 Pulse Ox 94 L 12/02/17 15:00 Intake & Output 12/02/17 12/02/17 12/03/17 06:59 18:59 06:59 Intake Total 480 Output Total 30 30 Balance -30 450 Weight 95.708 kg Intake: Oral 480 Output: Drainage 30 30 Right Abdomen 30 30 Other: Voiding Method Toilet # Voids 3 3 - Constitutional General appearance: Present: obese - EENT Eyes: Absent: abnormal pupil - Respiratory Respiratory: bilateral: CTA - Cardiovascular Rhythm: regular Heart sounds: normal: S1, S2 Abnormal Heart Sounds: Absent: S3 Gallop - Gastrointestinal General gastrointestinal: Present: soft. Absent: tenderness - Psychiatric Psychiatric: Present: A&O x's 3. Absent: appropriate affect - Labs CBC & Chem 7: 12/02/17 08:25 12/02/17 08:25 Labs: Abnormal Lab Results - Last 24 Hours (Table) 12/02/17 12/02/17 Range/Units 08:25 08:25 Hct 33.3 L (34.0-46.0) % Glucose 176 H (74-99) mg/dL Calcium 8.1 L (8.4-10.2) mg/dL AST 95 H (14-36) U/L ALT 256 H (9-52) U/L Alkaline Phosphatase 164 H (38-126) U/L Total Protein 5.5 L (6.3-8.2) g/dL Albumin 3.0 L (3.5-5.0) g/dL Microbiology - Last 24 Hours (Table) 11/28/17 18:40 Blood Culture - Preliminary Blood No Growth after 72 hours Assessment and Plan (1) Abdominal pain Current Visit: Yes Status: Acute Code(s): R10.9 - UNSPECIFIED ABDOMINAL PAIN SNOMED Code(s): 63872324 (2) Acute calculous cholecystitis Current Visit: Yes Status: Acute Code(s): K80.00 - CALCULUS OF GALLBLADDER W ACUTE CHOLECYST W/O OBSTRUCTION SNOMED Code(s): 75744822 (3) Choledocholithiasis Current Visit: Yes Status: Acute Code(s): K80.50 - CALCULUS OF BILE DUCT W/ O CHOLANGITIS OR CHOLECYST W/O OBST SNOMED Code(s): 194427982 (4) Elevated liver enzymes Current Visit: Yes Status: Suspected Code(s): R74.8 - ABNORMAL LEVELS OF OTHER SERUM ENZYMES SNOMED Code(s): 508573529 Plan: Advance diet as tolerated per surgical guidelines. Add Xanax 0.5 g 3 times a day when necessary. Anticipate discharge in the a.m. if tolerating diet and afebrile. Continue pulmonary toilet and anticipate discharge as above. Time with Patient: Less than 30
[2017-12-02 23:06] VITALS: RESP 18
[2017-12-03] MEDS: PIPERACILLIN-TAZOBACTAM 3.375 GM in DEXTROSE/WATER 1 50ML.BAG IVPB SCH (04:40)
[2017-12-03] MEDS: HYDROcodone/APAP 5-325MG 1 EACH TAB PO PRN (05:57)
[2017-12-03 06:06] VITALS: BP 154/77; PULSE 65; TEMP 96.8
--- NOTE | 2017-12-03 08:06 | P.DS ---
Providers Date of admission: 11/28/17 21:33 Attending physician: True Vasquez Consults: 11/28/17 21:33 Consult Physician Stat Consulting Provider: Sravan Camara Reason/Comments: Cholecystitis Do you want consulting provider notified?: Already Contacted Primary care physician: True Vasquez - Discharge Diagnosis(es) (1) Abdominal pain Current Visit: Yes Status: Acute (2) Acute calculous cholecystitis Current Visit: Yes Status: Acute (3) Choledocholithiasis Current Visit: Yes Status: Acute (4) Elevated liver enzymes Current Visit: Yes Status: Suspected Hospital Course: This discharge summary 71-year-old white female essentially admitted for cholecystitis. General having ERCP with stent and then cholecystectomy done by general surgery. The patient did quite well postoperatively and is tolerating diet without significant worsening pain. The patient is discharged in stable condition once cleared by surgery to follow-up with me in about 7-10 days. Patient Condition at Discharge: Stable Plan - Discharge Summary Discharge Rx Participant: Yes New Discharge Prescriptions: New ALPRAZolam [Xanax] 0.5 mg PO BID PRN #30 tablet PRN Reason: Anxiety HYDROcodone/APAP 5-325MG [Dudley 5-325] 1 each PO Q4HR PRN #30 tab PRN Reason: Pain Continue Atenolol 100 mg PO DAILY Acetaminophen/Diphenhydramine [Tylenol PM 500-25mg] 1 tab PO HS PRN PRN Reason: Insomnia LORazepam [Ativan] 0.5 mg PO BID PRN PRN Reason: STRESS Multivit/Folic Acid/Vit K1 [One-A-Day Women's 50 Plus Tab] 1 each PO DAILY Naproxen Sodium [Aleve] 440 mg PO BID PRN PRN Reason: Pain Discharge Medication List Acetaminophen/Diphenhydramine [Tylenol PM 500-25mg] 1 tab PO HS PRN 12/06/16 [ History] Atenolol 100 mg PO DAILY 12/06/16 [History] LORazepam [Ativan] 0.5 mg PO BID PRN 03/19/17 [History] Multivit/Folic Acid/Vit K1 [One-A-Day Women's 50 Plus Tab] 1 each PO DAILY 03/19 [History] Naproxen Sodium [Aleve] 440 mg PO BID PRN 03/19/17 [History] ALPRAZolam [Xanax] 0.5 mg PO BID PRN #30 tablet 12/03/17 [Rx] HYDROcodone/APAP 5-325MG [Dudley 5-325] 1 each PO Q4HR PRN #30 tab 12/03/17 [Rx] Follow up Appointment(s)/Referral(s): Sravan Camara MD [Medical Doctor] - 12/17/17 True Vasquez MD [Primary Care Provider] - 10 Days Patient Instructions/Handouts: *Surgery [facility] - Laparoscopic Cholecystectomy Discharge Instructions Activity/Diet/Wound Care/Special Instructions: Wants pneumovac Low fat, low salt diet. Activity as tolerated with weight restrictions as provided in d/c instruction. No driving if on narcotics. Keep incision clean and dry, may shower, no bath.
[2017-12-03] MEDS: PANTOPRAZOLE 40 MG/10 ML VIAL IV SCH (08:20)
--- NOTE | 2017-12-03 09:05 | P.PN ---
Progress Note - Text Progress Note Date: 12/03/17 71-year-old female seen and examined at bedside plan is for discharge today reviewed postop discharge activities and instructions. FAVIAN drain to be pulled prior to discharge scant amount of drainage in the bulb tolerating a diet surgical dressings dry Patient is felt to be stable and appropriate to proceed with a discharge will be followed in Dr. Camara's office in 1-2 weeks Note dictated for Dr. mckeon rounding on behalf of Dr. Camara The above impression and plan of care have been discussed and directed by signing physician. Sujey Aldana nurse practitioner acting as scribe for signing physician.
[2017-12-03] MEDS ORDERED: PANTOPRAZOLE 40 MG TABLET PO SCH (17:30)
== END 2017-12-03 09:48 | disposition home or self-care (01) | DRG 418 ==
LOC: EC 16:54 → 4MS4W 21:33
PROVIDERS: ADMIT Family Medicine; ATTEND Family Medicine
PROC: 0FC98ZZ Extirpation of Matter from Common Bile Duct, Via Natural or Artificial Opening Endoscopic (ICD-10-PCS; principal; 2017-11-30 08:05)
PROC: 0FT44ZZ Resection of Gallbladder, Percutaneous Endoscopic Approach (ICD-10-PCS; 2017-12-01)
DX: K80.62 Calculus of gallbladder and bile duct with acute cholecystitis without obstruction (principal); K83.0 Cholangitis; E66.9 Obesity, unspecified; E78.5 Hyperlipidemia, unspecified; F32.9 Major depressive disorder, single episode, unspecified; F41.9 Anxiety disorder, unspecified; G47.00 Insomnia, unspecified; I10 Essential (primary) hypertension; M19.90 Unspecified osteoarthritis, unspecified site; Z68.36 Body mass index [BMI] 36.0-36.9, adult; Z82.49 Family history of ischemic heart disease and other diseases of the circulatory system; Z83.3 Family history of diabetes mellitus; Z90.710 Acquired absence of both cervix and uterus; Z79.899 Other long term (current) drug therapy; Z79.1 Long term (current) use of non-steroidal anti-inflammatories (NSAID); M54.9 Dorsalgia, unspecified
CPT/HCPCS: 36415; 43262; 43277; 74177; 74328; 76705; 80053; 81003; 82150; 83605; 83690; 85025; 85027; 85610; 85730; 87040; 88304; 93005; 96361; 96365; 96366; 96375; 99285

== ENCOUNTER → 2018-11-24 | Outpatient (CLI) | payer MEDICARE, BC ==
--- NOTE | 2018-11-26 10:19 | MM ---
Reason for exam: screening (asymptomatic). Last mammogram was performed 1 year ago. History: Patient is postmenopausal and has history of high-risk lesion on a previous biopsy at age 66. Benign right breast needle localzation of both breasts, November 12, 2012. High risk US RT VAD breast biopsy of the right breast, November 02, 2012. Cyst aspiration of the left breast. Took estrogen for 5 years beginning at age 55. Physical Findings: A clinical breast exam by your physician is recommended on an annual basis and results should be correlated with mammographic findings. MG 3D Screening Mammo W/Cad Bilateral CC and MLO view(s) were taken. Prior study comparison: November 23, 2017, bilateral MG 3d screening mammo w/cad. November 13, 2016, bilateral MG 3d screening mammo w/cad. There are scattered fibroglandular densities. Benign oil cyst calcifications and left secretory calcifications. No significant changes when compared with prior studies. ASSESSMENT: Negative, BI-RAD 1 RECOMMENDATION: Routine screening mammogram of both breasts in 1 year.
== END | disposition home or self-care (01) ==
LOC: RADMAMWWP 13:18
PROVIDERS: ATTEND Obstetrics & Gynecology
DX: Z12.31 Encounter for screening mammogram for malignant neoplasm of breast (principal)
CPT/HCPCS: 77063; 77067

== ENCOUNTER → 2021-05-09 | Outpatient (CLI) | payer MEDICARE, BC ==
--- NOTE | 2021-05-10 12:10 | MM ---
Reason for exam: screening (asymptomatic). Last mammogram was performed 1 year and 1 month ago. History: Patient is postmenopausal and has history of high-risk lesion on a previous biopsy at age 66. Benign right breast needle localzation of both breasts, November 12, 2012. High risk US RT VAD breast biopsy of the right breast, November 02, 2012. Cyst aspiration of the left breast. Took hormonal contraceptives for 5 years. Took estrogen for 5 years beginning at age 55. Physical Findings: A clinical breast exam by your physician is recommended on an annual basis and results should be correlated with mammographic findings. MG 3D Screening Mammo W/Cad Bilateral CC and MLO view(s) were taken. Prior study comparison: March 30, 2020, bilateral MG 3d screening mammo w/cad. November 24, 2018, bilateral MG 3d screening mammo w/cad. November 13, 2016, bilateral MG 3d screening mammo w/cad. There are scattered fibroglandular densities. No significant changes when compared with prior studies. ASSESSMENT: Benign, BI-RAD 2 RECOMMENDATION: Routine screening mammogram of both breasts in 1 year.
== END | disposition home or self-care (01) ==
LOC: RADMAMWWP 15:10
PROVIDERS: ATTEND Obstetrics & Gynecology
DX: Z12.31 Encounter for screening mammogram for malignant neoplasm of breast (principal); Z78.0 Asymptomatic menopausal state
CPT/HCPCS: 77063; 77067

== ENCOUNTER → 2022-05-30 | Outpatient (CLI) | payer MEDICARE, BC ==
--- NOTE | 2022-06-02 19:20 | MM ---
Reason for Exam: Screening (asymptomatic). Last screening mammogram was performed 12 month(s) ago. Patient History: Menarche at age 12. First Full-Term at age 19. Hysterectomy at age 49. Postmenopausal. Estrogen for 5 years from age 55 until age 60. Patient used Hormonal Contraceptives for 5 years. Cyst Aspiration on the Left side. 11/12/2012, Bilateral Benign Excisional Biopsy. 11/02/2012, High risk Core Biopsy on the right side. Risk Values: Zuleyma 5 year model risk: 2.1%. NCI Lifetime model risk: 4.5%. Prior Study Comparison: 11/24/2018 Bilateral Screening Mammogram, [facility]. 03/30/2020 Bilateral Screening Mammogram, [facility]. 05/09/2021 Bilateral Screening Mammogram, [facility]. Tissue Density: There are scattered fibroglandular densities. Findings: Analyzed By CAD. Benign bilateral secretory and oil cyst calcifications. No significant change from prior exams. Overall Assessment: Benign, BI-RAD 2 Management: Screening Mammogram of both breasts in 1 year. 1. Patient should continue monthly self breast exams. 2. A clinical breast exam by your physician is recommended on an annual basis. 3. This exam should not preclude additional follow-up of suspicious palpable abnormalities. Electronically signed and approved by: Edith Palacios M.D. Radiologist
== END | disposition home or self-care (01) ==
LOC: RADMAMWWP 13:20
PROVIDERS: ATTEND Obstetrics & Gynecology
DX: Z12.31 Encounter for screening mammogram for malignant neoplasm of breast (principal); Z78.0 Asymptomatic menopausal state
CPT/HCPCS: 77063; 77067

== ENCOUNTER → 2024-06-03 | Outpatient (CLI) | payer MEDICARE, BC ==
--- NOTE | 2024-06-05 12:05 | MM ---
Reason for Exam: Screening (asymptomatic). Last screening mammogram was performed 12 month(s) ago. Patient History: Menarche at age 12. First Full-Term at age 19. Hysterectomy at age 49. Postmenopausal. Estrogen for 5 years from age 55 until age 60. Patient used Hormonal Contraceptives for 5 years. Cyst Aspiration on the Left side. 11/12/2012, Bilateral Benign Excisional Biopsy. 11/02/2012, High risk Core Biopsy on the right side. Risk Values: Zuleyma 5 year model risk: 2.1%. NCI Lifetime model risk: 4.0%. Prior Study Comparison: 05/09/2021 Bilateral Screening Mammogram, [facility]. 05/30/2022 Bilateral MG 3D screening mammo w/cad, [facility]. 06/02/2023 Bilateral MG 3D screening mammo w/cad, [facility]. Tissue Density: The breasts are heterogeneously dense, which may obscure small masses. Findings: Analyzed By CAD. The pattern is symmetrical. No significant interval change evident. Core markers within the right breast. No suspicious groups of microcalcifications, spiculated or lobular masses, architectural distortion or other secondary signs of malignancy are mammographically apparent. Overall Assessment: Benign, BI-RAD 2 Management: Screening Mammogram of both breasts in 1 year. A negative mammogram report should not preclude additional follow up of suspicious palpable abnormalities. Patient should continue monthly self breast exam. A clinical breast exam by your physician is recommended on an annual basis and results should be correlated with mammographic findings. Note on Zuleyma scores and lifetime risk: 1. A Zuleyma score greater than 3% is considered moderate risk. If this is the case, consider specialist referral to assess eligibility for a risk reducing agent. 2. If overall lifetime risk for the development of breast cancer is 20% or higher, the patient may qualify for future screening with alternating mammogram and breast MRI. [facility], , 06/05/2024 12:02 PM. Electronically signed and approved by: Philip Spicer D.O. Radiologis
== END | disposition home or self-care (01) ==
LOC: RADMAMWWP 11:30
PROVIDERS: ATTEND Family Medicine
DX: Z12.31 Encounter for screening mammogram for malignant neoplasm of breast
CPT/HCPCS: 77063; 77067